=== PATIENT | male | born 1985 | race Caucasian/White ===

== ENCOUNTER 2024-03-29 22:33 | Inpatient (IN) | payer OTHER, SELFPAY ==
[2024-03-29] VITALS (7 sets, daily range): BP systolic 109–150; BP diastolic 62–97; BMI 36.1; BMI 35.9
[2024-03-29 19:50] LABS: % Basophils 0.6 % (0-2); % Eosinophils 0.5 % (0-6); % Immature Granulocytes 0.7 % (0-0.5); % Lymphocytes 9.1 % (20.5-51.1); % Neutrophils 76.1 % (42.2-75.2); Absolute Basophils 0.1 10^3/uL (0-0.2); Absolute Eosinophils 0.1 10^3/uL (0-0.7); Absolute Immature Granulocytes 0.1 10^3/uL (0-0.05); Absolute Lymphocytes 1.6 10^3/uL (1.2-3.4); Absolute Monocytes 2.3 10^3/uL (0.1-0.6); Absolute Neutrophils 13.3 10^3/uL (1.4-6.5); Hematocrit 42.8 % (39.0-52.0); Hemoglobin 15.4 g/dL (13.0-18.0); Mean Corpuscular Hgb 30.7 pg (27.0-31.0); Mean Corpuscular Volume 85.3 fL (80.0-94.0); Mean Platelet Volume 10.2 fL (7.4-10.4); Nucleated Red Blood Cells % 0 % (-); Platelet Count 188 10^3/uL (130-400); Red Blood Cell Count 5.02 10^6/uL (4.70-6.10); Red Cell Dist. Width 12.2 % (11.5-14.5); White Blood Cell Count 17.4 10^3/uL (4.8-10.8)
--- NOTE | 2024-03-29 19:59 | ED.GENMED ---
History of Present Illness
General
Chief Complaint: Abdominal Pain
Source: patient and spouse
Exam Limitations: none
Time Seen by Provider: 03/29/24 19:30
Nursing documentation reviewed up to this point in time: agreed with
Travel History
Have you had any contact with someone who has COVID-19?: No
Do you have any symptoms of coronavirus? Fever > 100 degrees, chills, cough, shortness of breath, sore throat, loss of taste or smell, muscle aches, or headache?: No
History of Present Illness
History of Present Illness:
Patient is a 39-year-old male who presents to the emergency department complaining of left lower quadrant pain with fever and chills as well as diminished appetite and increased feeling of gassiness with constipation/diarrhea for the past 3 days.
Patient woke with this and then that night developed a fever. Patient denies any nausea or vomiting. Patient denies any hematuria, frequency, urgency, dysuria. Patient denies any flank or back pain. Patient denies any previous history of similar
episodes. Patient's temperature has been 102.
Past History
Past History
ED Past Medical History: GERD, HTN and Other (sarcoidosis)
ED Past Surgical History: Other (EGD)
Social History
Tobacco: Smoker
Alcohol: Daily
Personal: Partner
Living: with family
Employment: Employed
Family History
Family History: Other
Review of Systems
Review of Systems
All Other Systems: ROS reviewed and negative except as documented in HPI and ROS
Constitutional: Reports fever, fatigue and chills
EENT: Reports no symptoms
Respiratory: Reports no symptoms
Cardiac: Reports no symptoms
ABD/GI: Reports abdominal pain, diarrhea, constipated and anorexia; Denies nausea, vomiting, bloody stools or black stools
: Reports no symptoms
Musculoskeletal: Reports no symptoms
Skin: Reports no symptoms
Neurological: Reports no symptoms
Hematologic/Lymphatic: Reports no symptoms
Psychiatric: Reports no symptoms
Phy Exam
Physical Exam
Physical Exam:
Physical Exam
General: No apparent moderate distress, alert and appropriate, well nourished, well hydrated
HENT: Normocephalic, supple with no lymphadenopathy, no thyromegaly
Eyes: Clear sclera, conjuctiva without injection
Heart: Regular rhythm and rate. No S3, S4. No murmur. No NVD
Lungs: No respiratory distress, no stridor, lung sounds clear and equal bilaterally
Abdomen: Soft, moderate left lower quadrant tenderness with guarding but no rebound, no organomegaly, no CVA tenderness, BS diminished
Neuro: Alert and oriented x 3, CN II - XII intact, no motor focality, no cerebellar dysfunction
Skin: no rash
Psychiatric: well kept. interactive and cooperative
Extremities: No edema, cyanosis, tenderness, Good and equal peripheral pulses.
Course
Orders/Labs/Results
Orders:
Orders
03/29/24 19:41
Complete Blood Count/With Diff Urgent
Comprehensive Metabolic Panel Urgent
Lipase Urgent
Serum Osmolality Urgent
Comment: ADD ON
03/29/24 19:57
Urinalysis Reflex To Culture Urgent
0.9% Sodium Chloride 1000 ml [Nss] 1,000 ml IV BOLUS
Acetaminophen [Tylenol] 1,000 mg PO NOW STA
HYDROmorphone [Dilaudid] 0.5 mg IV NOW STA
Ondansetron Injectable [Zofran] 4 mg IV NOW STA
03/29/24 19:58
CT Abd/Pel (IV only)-DH only Urgent
Comment:
Reason For Exam: Left lower quadrant abdominal pain/tenderness
03/29/24 20:01
Acetaminophen [Tylenol] 1,000 mg .ROUTE .STK-MED ONE
03/29/24 21:43
Add On- LAB Urgent
Tests Added?: serum osmality
03/29/24 21:44
Osmolality, Random Urine Urgent
Urine Sodium Urgent
03/29/24 22:08
LevoFLOXacin 500 MG/100 ML [Levaquin] 500 mg in 100 ml IV NOW
MetroNIDAZOLE 500 MG/100 ML [Flagyl 500 mg] 100 ml IV ONCE
03/29/24 23:00
0.9% Sodium Chloride 500 ml [Nss] 500 ml IV 200 mls/hr
Abnormal Lab Results
03/29/24
19:41
WBC 17.4 H 10^3/uL
(4.8-10.8)
Abs Immat Gran (auto) 0.1 H 10^3/uL
(0-0.05)
Absolute Neuts (auto) 13.3 H 10^3/uL
(1.4-6.5)
Absolute Monos (auto) 2.3 H 10^3/uL
(0.1-0.6)
Immature Gran % 0.7 H %
(0-0.5)
Neutrophils % 76.1 H %
(42.2-75.2)
Lymphocytes % 9.1 L %
(20.5-51.1)
Monocytes % 13.0 H %
(1.7-9.3)
Sodium 129 L mmol/L
(135-145)
Chloride 93 L mmol/L
(98-107)
Creatinine 1.4 H mg/dL
(0.7-1.3)
Glucose 121 H mg/dl
(70-99)
Serum Osmolality 267 L mOsm/kg
(275-300)
Total Bilirubin 1.5 H mg/dl
(0.2-1.3)
03/29/24 19:41
03/29/24 19:41
Vital Signs
Initial and Last Documented VS:
Initial Vital Signs
Temp Pulse BP Pulse Ox
99.2 F 132 150/97 97
03/29/24 19:05 03/29/24 19:05 03/29/24 19:05 03/29/24 19:05
Last Documented Vital Signs
Temp Pulse Resp BP Pulse Ox
99.2 F 119 18 119/70 96
03/29/24 19:05 03/29/24 19:43 03/29/24 19:43 03/29/24 21:00 03/29/24 21:51
*Radiology
Radiology exam reviewed: radiology read reviewed (Acute sigmoid diverticulitis with microperforation)
*Pulse Oximetry
Patient hypoxic: no
*EKG
Interpreted by ED Provider?: NA
*Car Storer Interpretation
Rate: Car Storer- N/A
*Critical Care Note
Total Time (30-74mins, 75-104mins- exclusive of procedures): Not Applicable
ED Attending Note
-
Portions of this chart may have been created with voice recognition software.� Occasional wrong word or��sound alike� substitutions may have occurred due to the inherent limitations of voice recognition software.
Discharge Plan
Departure
Patient Disposition: Admit
Date of Disposition: 03/29/24
Time of Disposition: 22:10
Admit to: Med/Surg
Admit to doctor: Hospitalist
Presentation/result/management discussed w/ accepting MD/DO: Hospitalist
Patient with high blood pressure during this ER visit?: Yes
Condition: Serious
Covid-19: Not Applicable
Discharge Problem:
Acute diverticulitis, MICROPERFORATION of sigmoid colon, Hyponatremia
Prescriptions:
No Action
labetalol 100 mg tablet
100 mg PO BID Qty: 30 0RF
multivitamin Tablet
1 tab PO DAILY
calcium carbonate [Tums] 200 mg calcium (500 mg) Tablet,Chewable
500 mg PO DAILYPRN PRN (Reason: heartburn)
Referrals:
Nahed Park PA-C [Family Provider] -
Interventions
Interventions:
*Risk Screen - Suicide Last Done: 03/29/24 19:05
*General Assessment Last Done: 03/29/24 19:05
*Neglect/Abuse Screening Last Done: 03/29/24 19:05
ED- Fall Risk Assessment Last Done: 03/29/24 19:47
*ED COVID-19 Vaccine History Last Done: 03/29/24 19:05
SU-Sihsos-Rnviagvhjw Assessment Last Done: 03/29/24 19:47
Discharge Date and Time
Print Language: [place]
[2024-03-29 20:03] LABS: ALT (SGPT) 40 U/L (0-50); AST (SGOT) 32 U/L (17-59); Albumin 4.1 g/dl (3.5-5.0); Alkaline Phosphatase 88 U/L (38-126); Blood Urea Nitrogen 16 mg/dl (9-20); Calcium 8.7 mg/dl (8.4-10.2); Carbon Dioxide 24 mmol/L (22-30); Chloride 93 mmol/L (98-107); Estimated Creatinine Clearance 90 ml/min; Glucose 121 mg/dl (70-99); Lipase 53 U/L (23-300); Potassium 3.9 mmol/L (3.5-5.1); Sodium 129 mmol/L (135-145); Total Bilirubin 1.5 mg/dl (0.2-1.3); Total Protein 7.8 g/dl (6.3-8.2); eGFR > 60.00
[2024-03-29] MEDS: TYLENOL 1000 MG PO (20:04)
[2024-03-29] MEDS: DILAUDID 0.5 MG IV (20:04)
[2024-03-29] MEDS: ZOFRAN 4 MG IV (20:04)
[2024-03-29] MEDS: NSS 1000 IV ×2 (20:05→23:56)
[2024-03-29 22:09] LABS: Osmolality Serum 267 mOsm/kg (275-300)
[2024-03-29] MEDS: FLAGYL 500 MG 100 IV (22:19)
[2024-03-29] MEDS: LEVAQUIN 100 IV (22:19)
--- NOTE | 2024-03-29 22:25 | HPS.HSE ---
Family Physician
-
Family Physician: Nahed Park
Chief Complaint
-
abdominal pain an fever
History of Present Illness
39M HX HTN seen at ER for evalaution of abdominal pain and fever
Abdominal pain and fever:
Acute onset since Saturday
Progressive LLQ pain
Asspociated with chills and fever
Associated with diminished appetite and increased feeling of gassiness
POS constipation/diarrhea for the past 3 days.
No N & V
Denies any hematuria, frequency, urgency, dysuria
At ER:
Tachycardic and T 99s
WCC 17. 6
Medical History
Past Medical History
Past Medical History: Reports GERD, HTN and Other (sarcoidosis)
Past Surgical History: Reports None and Other (EGD )
Social History
Tobacco: Smoker
Alcohol: Daily (3-4 glasses [place] daily )
Drug: None
Living: With Family
Family History
Family History: Not pertinent
Allergies / Home Medications
Allergies reflects when Allergies were last updated in [employer].
Home Medications with original date entered in [employer]
Allergy/Medication List:
Allergies
Allergy/AdvReac Type Severity Reaction Status Date / Time
No Known Allergies Allergy Verified 03/29/24 19:05
Home Medications
calcium carbonate (Tums) 500 mg PO DAILYPRN PRN heartburn 06/25/22
multivitamin 1 tab PO DAILY Supplement 06/25/22
losartan 50 mg tablet 50 mg PO DAILY 03/29/24
Review of Systems
-
Constitutional: Reports No Symptoms
EENT: Reports No Symptoms
Respiratory: Reports No Symptoms
Cardiac: Reports No Symptoms
Abdomen/GI: Reports See HPI, Abdominal Pain, Diarrhea, Constipated and Anorexia
: Reports No Symptoms
Musculoskeletal: Reports No Symptoms
Skin: Reports No Symptoms
Neurological: Reports No Symptoms
Endocrine: Reports No Symptoms
Hematologic/Lymphatic: Reports No Symptoms
Psych: Reports No Symptoms
Physical Exam
Vital Signs
Vital Signs
Temp Pulse Resp BP Pulse Ox
99.2 F 119 18 119/70 96
03/29/24 19:05 03/29/24 19:43 03/29/24 19:43 03/29/24 21:00 03/29/24 21:51
Physical Exam
General: Appears in Distress (moderate ) and Pain (LLQ pain )
HEENT: NormoCephalic and Anicteric
Respiratory: Clear; No Wheezes, Rales or Rhonchi
Cardiac: S1/S2, Regular Rhythm and Tachycardia; No Murmur
Breast: Deferred by me
GI: Tender (moderate left lower quadrant tenderness with guarding but no rebound)
Rectal: Deferred by Provider
Genito-urinary: Deferred by me
Musculoskeletal: No Edema
Skin: Warm and Dry
Neuro: AO x 3
Psych: Calm
Laboratory Results
-
03/29/24 19:41
03/29/24 19:41
Laboratory Results
Total Bilirubin 1.5 mg/dl (0.2-1.3) H 03/29/24 19:41
AST 32 U/L (17-59) 03/29/24 19:41
ALT 40 U/L (0-50) 03/29/24 19:41
Alkaline Phosphatase 88 U/L (38-126) 03/29/24 19:41
Lipase 53 U/L (23-300) 03/29/24 19:41
Data Reviewed
-
CT Scan: Report Reviewed by me
Lab Data: Labs Reviewed by me
Impression/Plan
-
Reviewed VS: T 99.2 HR 120-130
Data
WCC 17. 6
Na 129 Cl 93
Cr 1.4 -bl 1.0
CT AP
Acute sigmoid diverticulitis with microperforation
No fluid collection
ASSESSMENT & PLAN
Acute sigmoid diverticulitis with microperforation but no fluid collection
Associated sepsis ( T 102, HR > 90, WCC > 10)
- BCx
- NPO and IVF
- Empiric IV LVQ and Flagyl
- EKGs for QTc monitor
- PRN Analgesia
- CRS consulted
Essential HTN
- Held Losartan
- add IV Hydralazine PRN
Daily ETOH use: 3-4 glasses [place] daily
At risk for acute ETOH WDS
- MSAS protocol
DVT Px: SCD
Code: Full
IP TLM
[2024-03-30] VITALS (7 sets, daily range): BP systolic 94–141; BP diastolic 57–80; BMI 35.9
[2024-03-30 01:54] LABS: Urine Albumin Trace (Neg - Trace); Urine Bilirubin Negative (Negative); Urine Character Clear (Clear); Urine Glucose Negative (Negative); Urine Ketone 2+ (Negative); Urine Leukocyte Negative (Negative); Urine Nitrite Negative (Negative); Urine Occult Blood Trace (Negative); Urine Urobilinogen Negative (Neg - 1+)
[2024-03-30 01:56] LABS: Urine Color Amber
[2024-03-30 02:11] LABS: Urine Sodium 5 mmol/L (30-90)
[2024-03-30 02:13] LABS: Amphetamines Negative (Negative); Barbiturates Negative (Negative); Benzodiazepines Negative (Negative); Buprenorphine Negative (Negative); Cocaine Negative (Negative); Methadone Negative (Negative); Methamphetamines Negative (Negative)
[2024-03-30 02:14] LABS: Marijuana Positive (Negative); Opiates Positive (Negative); Osmolality Urine 383 mOsm/kg (300-900); Phencyclidine Negative (Negative); Tricyclic Antidepressants Negative (Negative)
[2024-03-30 02:21] LABS: Urine Amorphous Seen; Urine Bacteria Few (Negative); Urine White Cell 0-2 /HPF (0-5)
[2024-03-30 02:28] LABS: Fentanyl, Urine Negative (Negative)
[2024-03-30] MEDS: OFIRMEV 100 IV (04:17)
[2024-03-30] MEDS: FLAGYL 500 MG 100 IV ×2 (05:35→14:51)
[2024-03-30 06:52] LABS: Hematocrit 39.8 % (39.0-52.0); Mean Corp Hgb Conc. 35.2 g/dL (33.0-37.0); Mean Corpuscular Hgb 30.5 pg (27.0-31.0); Mean Corpuscular Volume 86.7 fL (80.0-94.0); Mean Platelet Volume 10.6 fL (7.4-10.4); Platelet Count 185 10^3/uL (130-400); Red Blood Cell Count 4.59 10^6/uL (4.70-6.10); Red Cell Dist. Width 12.3 % (11.5-14.5); White Blood Cell Count 13.9 10^3/uL (4.8-10.8)
[2024-03-30 07:02] LABS: INR 1.27; PT 15.7 Sec (11.4-14.6)
[2024-03-30 07:03] LABS: APTT 36.2 Sec (23.4-35.0)
[2024-03-30 07:22] LABS: Blood Urea Nitrogen 15 mg/dl (9-20); Calcium 8.1 mg/dl (8.4-10.2); Carbon Dioxide 20 mmol/L (22-30); Chloride 99 mmol/L (98-107); Estimated Creatinine Clearance > 125 ml/min; GGTP 167 U/L (15-73); Glucose 97 mg/dl (70-99); Magnesium 2.4 mg/dl (1.6-2.3); Phosphorus 3.4 mg/dl (2.5-4.5); Potassium 3.9 mmol/L (3.5-5.1); Sodium 132 mmol/L (135-145); eGFR > 60.00
[2024-03-30 07:29] LABS: B-Hydroxybutyrate 1.26 mmol/L (0.02-0.27)
[2024-03-30 07:37] LABS: Alcohol None Detected
[2024-03-30] MEDS: NSS 1000 IV ×2 (08:46→17:46)
[2024-03-30] MEDS: THIAMINE INJECTION 200 MG IV ×2 (08:47→20:02)
[2024-03-30] MEDS: FOLVITE PO (08:47)
--- NOTE | 2024-03-30 10:19 | W.PN.HOSP.TC ---
Addendum entered and electronically signed by Linda Schneider MD 03/30/24 17:10:
Addendumm
reviewed VS, pt seems to have persistent tachycardia, temp at 99. WIll change IV Abx to IV Zosyn. Blood cultures are pending.
CBC in AM
End
Original Note:
Today's Communication/Plan
-
.
Assessment / Plan
Assessment / Plan
Physical Exam
General: Appears in Distress (moderate ) and Pain (LLQ pain )
HEENT: NormoCephalic and Anicteric
Respiratory: Clear; No Wheezes, Rales or Rhonchi
Cardiac: S1/S2, Regular Rhythm and Tachycardia; No Murmur
GI: soft, no significant tenderness in LLQ
Rectal: no bleeding
Genito-urinary: Deferred by me
Musculoskeletal: No Edema
Skin: Warm and Dry
Neuro: AO x 3
Psych: Calm
#Acute sigmoid diverticulitis with microperforation but no fluid collection
Associated sepsis/septic shock ( T 102, HR > 90, WCC > 10)
He is feeling less pain and discomfort. No nausea.
Await blood cultures.
CAT scan reading with possible microperforation
Continue with IV fluid. WBC coming down.
IV antibiotics. He did not need pain medications since admission
Appreciate surgery help
#Hyponatremia, improving.
No confusion.
# Acute kidney injury, creatinine improved.
#Essential HTN
- Held Losartan
- added IV Hydralazine PRN
Daily ETOH use: 3-4 glasses [place] daily
He does not have signs of withdrawal. Monitor.
At risk for acute ETOH WDS
- MSAS protocol
#DVT prophylaxis, subcu Lovenox
#History of tobacco use, nicotine patch
# Obesity BMI 35
Total time spent to see the patient, examine the patient on the floor, review data and lab results, discuss treatment plan with patient, , nursing staff around 55 minutes
Anticipated Discharge: > 48 hours
Subjective/Interval History
-
Date of Service: March 30, 2024
Less abd discomfort
No nausea
Objective Data
-
Labs:
Laboratory Results
03/30/24 03/30/24 03/30/24
06:00 06:07 06:08
WBC 13.9 H
Hgb 14.0
Hct 39.8
Plt Count 185
PT 15.7 H
INR 1.27
APTT 36.2 H
Sodium Cancelled 132 L
Potassium Cancelled 3.9
Chloride Cancelled 99
Carbon Dioxide Cancelled 20 L
BUN Cancelled 15
Creatinine Cancelled 1.0
Glucose Cancelled 97
Calcium Cancelled 8.1 L
Vital Signs:
Vital Signs
Temp Pulse Resp BP Pulse Ox
98.8 F 96 12 110/70 96
03/30/24 06:30 03/30/24 06:30 03/30/24 06:30 03/30/24 06:30 03/30/24 06:30
I&O
03/29/24 03/30/24 03/31/24
06:59 06:59 06:59
Intake Total 0 / 0
Balance 0 / 0
[2024-03-30] MEDS: NICODERM TRANSDERMAL 14 MG TRANSDERM (10:39)
[2024-03-30] MEDS: ATIVAN 1 MG PO (11:16)
--- NOTE | 2024-03-30 12:06 | CM ---
Received consult for etoh/substance resources. Met with patient and his at bedside to obtain information for assessment. Patient stated that he lives with his in a one story home with 3 steps to enter. He described himself as independent
with all ADLs, personal care, dressing and bathing. He ambulates without device. 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 He drives and can get to his appointments and do all of his own shopping.
Patient denied any DME in his home.
He has never had VN services.
He has not had a SNF stay.
Patient has a prescription plan and uses, [facility] in [place] for all of his medications.
His PCP is, Nahed Park.
Patient was offered resources for etoh however he stated that he did not need any materials for cessation and he is not going to be drinking after this. encouraged him to ask if he reconsiders and he stated that he would.
Plan: Case management will continue to follow and assist with discharge planning. Patient would like to return home when stable.
--- NOTE | 2024-03-30 13:11 | CON.CRS ---
Consultation
-
Date/Time Consultation Requested: 03/29/2024, 23:27
Date/Time Consultation Performed: 03/29/2024, 11:05
Requesting Provider: Ravinder Chase
Performing Provider: Anderson Levine MD
Reason for Consultation: diverticulitis
Medical History
-
Chief Complaint: abdominal pain
History of Present Illness:
39-year-old male, with a past medical history of sarcoidosis and tobacco abuse, presents to the emergency department complaining of abdominal pain for the past 3 days. The patient states he has never had pain like this before. Along with the pain
he has had intermittent fevers over the past 3 days with a high of 102.0.. He denies nausea or vomiting. He denies chest pain. He denies shortness of breath. He has been having diarrhea for about a day but has not noticed any blood in his stool.
He does not have a previous history of diverticulitis. He has never had abdominal surgery. His family history is negative for colon or rectal cancer. He has never had a colonoscopy.
On admission his WBC was 17.9 and he was started on IV antibiotics. Today's WBC is 13.9. CT of the abdomen and pelvis shows acute sigmoid diverticulitis with probable microperforation. We have been consulted for further surgical opinion.
Past Medical History
Past Medical History: GERD, HTN and Other (sarcoidosis)
Past Surgical History: None
Social History
Tobacco: Smoker (Half to 1 pack a day for last 20 years)
Alcohol: Daily (4 drinks per day)
Drug: None
Family History
Family History: Reviewed & Not Pertinent
Allergies / Home Medications
Allergy/AdvReac Type Severity Reaction Status Date / Time
No Known Allergies Allergy Verified 03/29/24 19:05
�Medication �Instructions �Recorded �Confirmed �Type
calcium carbonate (Tums) 500 mg PO DAILYPRN PRN heartburn 06/25/22 03/29/24 History
multivitamin 1 tab PO DAILY Supplement 06/25/22 03/29/24 History
losartan 50 mg tablet 50 mg PO DAILY Blood Pressure 03/29/24 03/29/24 History
Review of Systems
-
History Source: Patient
All other systems: Negative unless noted
Constitutional: Fever
Abdomen/GI: Abdominal Pain and Diarrhea
A 10 point review of systems was completed, and was negative except as per HPI.
Physical Exam
Vital Signs
Temp 98.8 F 03/30/24 11:10
Pulse 100 03/30/24 11:10
Resp Rate 14 03/30/24 11:10
Blood pressure 104/57 03/30/24 11:10
SaO2 97 03/30/24 13:01
03/29/24 03/30/24 03/31/24
06:59 06:59 06:59
Actual Weight 113.398 kg
Body Mass Index (BMI) 35.9
Lab Results / Allergies
03/30/24 06:08
03/30/24 06:07
WBC 13.9 10^3/uL (4.8-10.8) H 03/30/24 06:08
Hgb 14.0 g/dL (13.0-18.0) 03/30/24 06:08
Hct 39.8 % (39.0-52.0) 03/30/24 06:08
Plt Count 185 10^3/uL (130-400) 03/30/24 06:08
Abs Immat Gran (auto) 0.1 10^3/uL (0-0.05) H 03/29/24 19:41
Neutrophils % 76.1 % (42.2-75.2) H 03/29/24 19:41
Allergy/AdvReac Type Severity Reaction Status Date / Time
No Known Allergies Allergy Verified 03/29/24 19:05
Physical Exam
General: Well Developed, Well Nourished and No Apparent Distress
GI: Soft, Non Distended and Tender (Mild left lower quadrant tenderness)
Skin: Warm and Dry
Neuro: AO x 3
Psych: Calm
Data Reviewed
-
CT Scan: Image Personally Visualized and interpreted, Report Reviewed by me and Discussed with Patient
Labs: Labs Reviewed by me, Discussed with Physician and Discussed with Patient
Old Records: Reviewed
Assessment / Plan
-
Assessment: 39-year-old male with a history of sarcoidosis and tobacco abuse presents to the ER for 3 days of abdominal pain and fevers. Started on IV antibiotics and white count is down to 13.[address] abdomen pelvis shows acute diverticulitis
of the sigmoid.
WBC 13.9. Afebrile, vital signs normal.
Plan:
There is no indication for surgery at this time. If he were to worsen he would require a colectomy with colostomy creation. For now continue IV antibiotics. Okay to advance on a clear liquid diet. Trend labs daily. Will follow.
[2024-03-30] MEDS: ZOSYN 50 IV (17:46)
[2024-03-31] VITALS (8 sets, daily range): BP systolic 118–151; BP diastolic 70–94
[2024-03-31] MEDS: NSS 1000 IV ×2 (00:07→09:05)
[2024-03-31] MEDS: ZOSYN 50 IV ×5 (00:08→23:26)
[2024-03-31 07:30] LABS: Hematocrit 41.5 % (39.0-52.0); Hemoglobin 13.8 g/dL (13.0-18.0); Mean Corp Hgb Conc. 33.3 g/dL (33.0-37.0); Mean Corpuscular Hgb 30.1 pg (27.0-31.0); Mean Corpuscular Volume 90.6 fL (80.0-94.0); Mean Platelet Volume 10.2 fL (7.4-10.4); Platelet Count 192 10^3/uL (130-400); Red Blood Cell Count 4.58 10^6/uL (4.70-6.10); Red Cell Dist. Width 12.1 % (11.5-14.5); White Blood Cell Count 9.1 10^3/uL (4.8-10.8)
[2024-03-31 07:44] LABS: Blood Urea Nitrogen 13 mg/dl (9-20); Calcium 8.6 mg/dl (8.4-10.2); Carbon Dioxide 22 mmol/L (22-30); Chloride 103 mmol/L (98-107); Estimated Creatinine Clearance > 125 ml/min; Glucose 92 mg/dl (70-99); Potassium 4.2 mmol/L (3.5-5.1); Sodium 137 mmol/L (135-145); eGFR > 60.00
[2024-03-31] MEDS: VISBIOME 1 CAP PO (09:04)
[2024-03-31] MEDS: THIAMINE INJECTION 200 MG IV ×2 (09:04→20:13)
[2024-03-31] MEDS: NICODERM TRANSDERMAL 14 MG TRANSDERM (09:05)
[2024-03-31] MEDS: FOLVITE 1 MG PO (09:05)
--- NOTE | 2024-03-31 09:23 | W.PN.HOSP.TC ---
Today's Communication/Plan
-
Oral Ativan for anxiety
Can advance diet as tolerated slowly
No need for more IVF
Assessment / Plan
Assessment / Plan
Physical Exam
General: Appears in Distress (moderate ) and Pain (LLQ pain )
HEENT: Normocephalic and Anicteric
Respiratory: Clear; No Wheezes, Rales or Rhonchi
Cardiac: S1/S2, Regular Rhythm and Tachycardia; No Murmur
GI: soft, no significant tenderness in LLQ
Rectal: no bleeding
Genito-urinary: Deferred by me
Musculoskeletal: No Edema
Skin: Warm and Dry
Neuro: AO x 3
Psych: Calm, flat affaect
#Acute sigmoid diverticulitis with microperforation but no fluid collection
Associated sepsis/septic shock ( T 102, HR > 90, WCC > 10)
He denies abdominal pain or nausea. Antibiotic was changed to Zosyn after persistent tachycardia and temperature of 99.9. This morning, he is feeling much better. He is afebrile with temperature 98.7
Blood culture no growth. Can stop IV fluid
CAT scan reading with possible microperforation
Will advance diet slowly. Leukocytosis resolved
Appreciate surgery help
#Hyponatremia, resolved
No confusion.
# Acute kidney injury, creatinine improved.
#Essential HTN
Resume losartan
#Daily ETOH use: 3-4 glasses [place] daily
He does not have signs of withdrawal. Monitor.
At risk for acute ETOH WDS
- MSAS protocol
# Anxiety, will give 1 dose of Ativan
#DVT prophylaxis, subcu Lovenox
#History of tobacco use, nicotine patch
# Obesity BMI 35
Total time spent to see the patient, examine the patient on the floor, review data and lab results, discuss treatment plan with patient, , nursing staff around 55 minutes
Anticipated Discharge: 24 - 48 hours
Subjective/Interval History
-
Date of Service: March 31, 2024
Objective Data
-
Labs:
Laboratory Results
03/31/24
06:56
WBC 9.1
Hgb 13.8
Hct 41.5
Plt Count 192
Sodium 137
Potassium 4.2
Chloride 103
Carbon Dioxide 22
BUN 13
Creatinine 1.0
Glucose 92
Calcium 8.6
Vital Signs:
Vital Signs
Temp Pulse Resp BP Pulse Ox
98.7 F 92 16 139/77 98
03/31/24 08:00 03/31/24 08:00 03/31/24 08:00 03/31/24 08:00 03/31/24 08:00
I&O
03/30/24 03/31/24 04/01/24
06:59 06:59 06:59
Intake Total 0 / 0 4240 / 4240
Balance 0 / 0 4240 / 4240
[2024-03-31] MEDS: ATIVAN 0.5 MG PO (09:45)
--- NOTE | 2024-03-31 11:20 | W.PN.CRS1 ---
Today's Communication / Plan
-
no plans for surgery
advance diet
Assessment/Plan
-
Assessment: 39-year-old male with a history of sarcoidosis and tobacco abuse presents to the ER for 3 days of abdominal pain and fevers. Started on IV antibiotics and white count is down to 13.[address] abdomen pelvis shows acute diverticulitis
of the sigmoid.
WBC 11.1 from 13.9. Afebrile, vital signs normal.
Plan:
1. There is no indication for surgery at this time. If he were to worsen he would require a colectomy with colostomy creation.
2. Patient advanced to fulls this morning, okay to advance to low residue for dinner if doing well.
3. Continue IV antibiotics, convert to oral as an outpatient.
4. Will need follow up with Dr. Levine as an outpatient.
Subjective Data
Subjective Data
Date of Service: March 31, 2024
Patient states he feels better today. He has less pain. He is not bloated. He denies nausea or vomiting.
Objective Data
-
Vital Signs
Temp Pulse Resp BP Pulse Ox
98.7 F 92 16 139/77 98
03/31/24 08:00 03/31/24 08:00 03/31/24 08:00 03/31/24 08:00 03/31/24 10:46
Intake & Output
03/30/24 03/31/24 04/01/24
06:59 06:59 06:59
Intake Total 0 / 0 4240 / 4240
Balance 0 / 0 4240 / 4240
Intake:
Oral fluids 0 / 0 940 / 940
IV fluids (Total) 3000 / 3000
IV piggybacks 300 / 300
Other:
Number of approximated MODERATE 3 2
amounts of urine
Number of approximated LARGE 1
amounts of urine
Lab Results
03/31/24 06:56
03/31/24 06:56
Physical Exam
-
General: No Acute Distress and AOx3
Abdomen: Soft, Non Distended and Tender (LLQ- mild)
Skin: Warm and Dry
--- NOTE | 2024-03-31 18:39 | PTCARENOTE ---
Patient's diet advanced to low residue diet after tolerating full liquids for lunch per GI order; patient states stomach feeling 'bubbly' after eating low residue dinner but states he tolerated meal and denies pain at this time.
[2024-03-31] MEDS: DILAUDID 0.5 MG IV ×2 (20:54→21:51)
[2024-03-31] MEDS: DILAUDID 1 MG IV (23:55)
[2024-03-31] MEDS: MYLICON 80 MG PO (23:59)
[2024-04-01] VITALS (15 sets, daily range): BP systolic 111–155; BP diastolic 75–103
[2024-04-01] MEDS: NSS 1000 IV ×3 (01:05→23:29)
--- NOTE | 2024-04-01 02:17 | PTCARENOTE ---
Pt c/o lower abdominal pain 10/10 after using the bathroom. Pt admitted with LLQ pain and diverticulitis. Pt stated his pain now is continuous and it is different compare to pain he had before. Pt denies nausea or vomiting. Now bowel sounds
hypoactive LUQ, RUQ and RLQ, and absent on LLQ (on initial assessment was hyperactive in all four quadrants) PRN Dilaudid given and pt's pain improved to 8/10. FILM LABORATORY TECHNICIAN made aware. Another dose of Dilaudid was given without any improvement. STAT CT abd
with contrast ordered.
01:35 Radiologist Mari called with critical result, and result was reported to FILM LABORATORY TECHNICIAN via the phone. Pt made NPO and IV fluids started.
[2024-04-01] MEDS: DILAUDID 1 MG IV ×4 (03:18→18:35)
--- NOTE | 2024-04-01 03:24 | PTCARENOTE ---
0300 Pt VS T102.5 RR 127 BP 151/102 O2 89% on RA. Pt phased on 2L, STAT labs ordered per ASSISTANT CASINO SHIFT MANAGER
[2024-04-01 03:37] LABS: Hematocrit 43.2 % (39.0-52.0); Hemoglobin 14.8 g/dL (13.0-18.0); Mean Corp Hgb Conc. 34.3 g/dL (33.0-37.0); Mean Corpuscular Hgb 30.4 pg (27.0-31.0); Mean Corpuscular Volume 88.7 fL (80.0-94.0); Mean Platelet Volume 10.3 fL (7.4-10.4); Platelet Count 272 10^3/uL (130-400); Red Blood Cell Count 4.87 10^6/uL (4.70-6.10); Red Cell Dist. Width 12.2 % (11.5-14.5); White Blood Cell Count 12.7 10^3/uL (4.8-10.8)
--- NOTE | 2024-04-01 03:39 | W.PN.UPDATE ---
Update Note
Progress Note Update
Patient continuos to c/o abdomen pain after total of 1mg IV Dilaudid. stable Vital signs. Patient seen and evaluated. c/o 'gassy, sharp' across the mid abdomen, mildly firm, distended, tender to palpate, Hypoactive BS 4 quadrant, neg flatus. IV
Dilaudid 1mg given, Simethicone 80mg once, Last BM at [address] Martínez (GI) made aware. ordered CT scan, NSS @100/hr,
Result notified to Dr. Martínez. Patient made NPO, continue NSS, on Zosyn 3.375 IV q6 hrs.
Result shows:
New moderate amount of free air through out abdomen
worsened perforated diverticulitis
inflamed diverticulum suggestive of developing abscess.
At 0300 patient spike temperature 102.5 HR 127 BP 151/102 O2 on RA 89. IV Tylenol ordered, IV Dilaudid 1mg given, stat labs, ABG ordered.
labs noted, WBC 12.7, procal 0.52 Will start patient on IV antibiotics.
Currently on Zosyn, will add IV Vancomycin. Dr. Martínez made aware again.
Dr. Martínez recommending surgery and that he will make the team aware.
Patient seen again, explained the plan to himself and the family, verbalized understanding.
Patient looks little comfortable at present. Will change pain medications.
98.2, 121, 21 95% 2L 5/10 pain
[2024-04-01 03:41] LABS: B.E. -2.4 mmol/L; HCO3 21.7 mmol/L (21-28); PCO2 35 mmHg (35-48); PO2 66 mmHg (83-108)
[2024-04-01] MEDS: OFIRMEV 100 IV (03:44)
[2024-04-01 04:00] LABS: Blood Urea Nitrogen 13 mg/dl (9-20); Carbon Dioxide 20 mmol/L (22-30); Chloride 103 mmol/L (98-107); Estimated Creatinine Clearance > 125 ml/min; Glucose 134 mg/dl (70-99); Potassium 4.5 mmol/L (3.5-5.1); Sodium 134 mmol/L (135-145); eGFR > 60.00
[2024-04-01 04:22] LABS: Procalcitonin 0.52 ng/ml (0.0-0.25)
[2024-04-01] MEDS: VANCOCIN 540 MG IV (04:46)
[2024-04-01] MEDS: ZOSYN 50 IV ×4 (05:50→23:29)
--- NOTE | 2024-04-01 06:22 | W.PN.UPDATE ---
Update Note
Progress Note Update
I was contacted by the overnight house provider a couple of times last night, most recent at 430 with the results of the CT scan. He spiked a fever last night, had worsening abdominal pain, and is tachycardic. On physical exam he appears acutely
ill his abdomen is tender throughout but mostly in the left lower quadrant with peritoneal signs. The CT scan reveals a new moderate amount of free air throughout the abdomen as well as a 2.4 x 1.8 cm loculated fluid collection near inflamed
sigmoid diverticulum.
I reviewed the current findings with the patient and his and discussed the treatment options. I recommend surgery, which will most likely involve a temporary colostomy. Without surgery, it is unlikely his condition will improve since it has
progressed with antibiotics. I reviewed the operation, i.e. a laparotomy, sigmoid resection with probable end colostomy. I explained there is a small chance of an anastomosis but it will depend upon the operative findings. Risks of surgery
include, but are not limited to, bleeding, infection, adhesions, hernias, injury other structures, anastomotic leak if one is performed, stoma complications, injury other structures, DVT, cardiopulmonary complications, and organ dysfunction. I also
reviewed the typical recovery and functional results. All questions answered and they wish to proceed. Arrangements are in progress for the operating room.
--- NOTE | 2024-04-01 08:00 | PTCARENOTE ---
Pt in OR for bowel perforation. 0800 MSAS cannot be done.
--- NOTE | 2024-04-01 10:00 | W.IMMPOSTOP ---
Surgical Immed Post Op Note
-
Primary Surgeon: Jesus Alberto Martínez MD
Assistants: Carol Crowley PA-C, SALTY Maria
Pre-op Diagnosis: Perforated sigmoid diverticulitis
Post-op Diagnosis: Same
Procedure Performed: Exploratory laparotomy, sigmoid resection and end colostomy (Helen's procedure)
Anesthesia Type: GET
Specimen / Cultures: Peritoneal cultures (aerobic and anaerobic)
Sigmoid colon (suture is distal)
Estimated Blood Loss: 25cc
Complications: None
Operative Findings: Perforated distal sigmoid diverticulitis (Hinchey IV)
NGT tip not confirmed in the stomach
Patient's and mother updated.
[2024-04-01] MEDS: FOLVITE PO (10:10)
[2024-04-01] MEDS: VISBIOME PO (10:10)
[2024-04-01 10:47] LABS: Hematocrit 45.5 % (39.0-52.0); Mean Corpuscular Hgb 29.9 pg (27.0-31.0); Mean Corpuscular Volume 90.6 fL (80.0-94.0); Platelet Count 305 10^3/uL (130-400); Red Blood Cell Count 5.02 10^6/uL (4.70-6.10); Red Cell Dist. Width 12.4 % (11.5-14.5); White Blood Cell Count 17.7 10^3/uL (4.8-10.8)
--- NOTE | 2024-04-01 11:00 | WOUNDNOTE ---
WON RN NOTE: Patient had emergent sigmoid resection with Colostomy for perforation early this morning. Patient still in PACU, dropped off information folder and ordered 2 3/4' Willard 2 piece supplies for bedside. Nurse Ravinder aware of the above and
will follow towards end of week for teaching.
[2024-04-01 11:20] LABS: Blood Urea Nitrogen 12 mg/dl (9-20); Calcium 8.3 mg/dl (8.4-10.2); Carbon Dioxide 19 mmol/L (22-30); Chloride 103 mmol/L (98-107); Estimated Creatinine Clearance > 125 ml/min; Glucose 179 mg/dl (70-99); Potassium 4.9 mmol/L (3.5-5.1); Sodium 133 mmol/L (135-145); eGFR > 60.00
[2024-04-01] MEDS: THIAMINE INJECTION 200 MG IV ×2 (11:36→20:35)
[2024-04-01] MEDS: NICODERM TRANSDERMAL 14 MG TRANSDERM (11:37)
[2024-04-01] MEDS: DILAUDID 0.5 MG IV (11:53)
--- NOTE | 2024-04-01 12:14 | PHA.VAN.IN ---
Assessment
- Assessment
Renal Function: Appears similar to baseline
Renal Function may be Overestimated due to: obesity
Maximum Temperature: 102.5 - 04/01 03:03
Concomitant Antimicrobials: piperacillin/tazobactam
AUC Dosing Plan
- Dosing Variables
Dosing Weight (kg): 113
Dosing CrCl (ml/min): 125
Vd coefficient (L/kg): 0.6
- Empiric Dosing
Initial / Loading Dose: 2000 mg 04/01/24 04:46
Maintenance Regimen: 1000 mg q8h - first dose 1800 today
Estimated AUC (mcg*h/mL): 442
Estimated Peak (mcg*h/mL): 25.5
Estimated Trough (mcg/ml): 12.6
Estimated Half Life (H): 6.4
- Monitoring
No levels ordered at this time: consider levels when pt nears steady state
Pharmacokinetics Vancomycin I
- -
Patient Age: 39
Patient Sex: Male
Vancomycin Day #: 1
Indication: Gi / Intra-Abdominal
Requesting Provider: Ebenezer
Height / Weight:
Height 5 ft 10 in
Actual Weight 113.398 kg
Pertinent Past Medical History: BMI ~36; s/p Hartmanns for perforated sigmoid diverticulitis on 04/01
- Vital Signs / Lab Results
Temp Pulse Resp BP Pulse Ox
97.9 F 114 16 126/80 94
04/01/24 11:45 04/01/24 11:45 04/01/24 11:45 04/01/24 11:45 04/01/24 11:45
Lab Results - Hematology
03/29/24 03/30/24 03/31/24
19:41 06:08 06:56
WBC 17.4 H 13.9 H 9.1
04/01/24 04/01/24
03:21 10:38
WBC 12.7 H 17.7 H
Lab Results - Chemistry
03/29/24 03/30/24 03/30/24
19:41 06:00 06:07
BUN 16 Cancelled 15
Creatinine 1.4 H Cancelled 1.0
Estimated Creat Clear 90 Cancelled > 125
Albumin 4.1
03/31/24 04/01/24 04/01/24
06:56 03:21 10:38
BUN 13 13 12
Creatinine 1.0 1.0 1.0
Estimated Creat Clear > 125 > 125 > 125
Albumin
Lab Results - Urine
03/30/24
01:46
Urine Nitrite Cancelled
Urine Nitrite (Reflex) Negative
Ur Leukocyte Esterase Cancelled
Leukocyte Esterase Rfl Negative
Urine WBC (Reflex) 0-2
Ur Squamous Epith Cells 3-5
Urine Bacteria (Reflex) Few A
Microbiology Results
03/30/24 06:07 Blood Culture - Preliminary
Blood/Venous No Growth in 48 hours- Final report to follow
03/30/24 06:43 Blood Culture - Preliminary
Blood/Venous No Growth in 48 hours- Final report to follow
03/30/24 06:11 MRSA Screen - Final
Nose No Methicillin Resistant Staphylococcus aureus isolated.
--- NOTE | 2024-04-01 12:24 | PTCARENOTE ---
Pt recived from PACU. Mid abd incision with scant sanguineous drainage at bottom of Aquacel. Verified with [facility]. Colostomy site CDI. NGT in L nare connected to continuous suction. Tele monitor reading ST. Pt. c/o of 6/10 abd pain throughout. PRN
IV Dilaudid given prn per order. IVF and IV abx running per order. at bedside. Call poon within reach.
--- NOTE | 2024-04-01 15:10 | CM ---
CM reviewed chart
Pt in OR earlier today sigmoidectomy and new ostomy
Bedside meeting with pt and spouse to discuss VN
In agreement for new ostomy care and support, VN choice
Referral made to [facility] and pending
PCP is [facility] and pt current, last visit 3 months prior
Discharge Disposition- home with new ostomy and VN ([facility] pending)
--- NOTE | 2024-04-01 16:06 | VNURNOTE ---
[facility] referral completed in [facility] after review of chart.
Call to patient's spouse to review plan, no answer this afternoon.
[2024-04-01] MEDS: VANCOCIN 200 IV (17:53)
--- NOTE | 2024-04-01 18:01 | W.PN.HOSP.TC ---
Today's Communication/Plan
-
.
Assessment / Plan
Assessment / Plan
Physical Exam
General: Appears in Distress (moderate ) and Pain (LLQ pain )
HEENT: Normocephalic and Anicteric
Respiratory: Clear; No Wheezes, Rales or Rhonchi
Cardiac: S1/S2, Regular Rhythm and Tachycardia; No Murmur
GI: soft, no significant tenderness in LLQ
Rectal: no bleeding
Genito-urinary: Deferred by me
Musculoskeletal: No Edema
Skin: Warm and Dry
Neuro: AO x 3
Psych: Calm, flat affaect
#Acute Perforated sigmoid diverticulitis s/p Exploratory laparotomy, sigmoid resection and end colostomy (Helen's procedure) by Dr Martínez 04/01
c/w IV Abx
Pain control
NG
IVF
Appreciate surgery help
#Hyponatremia, resolved
No confusion.
# Acute kidney injury, creatinine improved.
#Essential HTN
Holding losartan
#Daily ETOH use: 3-4 glasses [place] daily
He does not have signs of withdrawal. Monitor.
At risk for acute ETOH WDS
- MSAS protocol
# Anxiety, will give 1 dose of Ativan
#DVT prophylaxis, subcu Lovenox
#History of tobacco use, nicotine patch
# Obesity BMI 35
Total time spent to see the patient, examine the patient on the floor, review data and lab results, discuss treatment plan with patient, nursing staff around 55 minutes
Anticipated Discharge: > 48 hours
Subjective/Interval History
-
Date of Service: April 01, 2024
pain in abdomen post op
Objective Data
-
Labs:
Laboratory Results
04/01/24
10:38
WBC 17.7 H
Hgb 15.0
Hct 45.5
Plt Count 305
Sodium 133 L
Potassium 4.9
Chloride 103
Carbon Dioxide 19 L
BUN 12
Creatinine 1.0
Glucose 179 H
Calcium 8.3 L
Vital Signs:
Vital Signs
Temp Pulse Resp BP Pulse Ox
97.4 F 103 16 122/82 94
04/01/24 15:20 04/01/24 15:20 04/01/24 15:20 04/01/24 15:20 04/01/24 15:20
I&O
03/31/24 04/01/24 04/02/24
06:59 06:59 06:59
Intake Total 4240 / 4240 500 / 500 1100 / 1100
Output Total 50 / 50
Balance 4240 / 4240 500 / 500 1050 / 1050
[2024-04-01] MEDS: TORADOL 30 MG IV (18:33)
[2024-04-02] VITALS (7 sets, daily range): BP systolic 114–141; BP diastolic 83–93; PULSE 111; O2SAT 96
[2024-04-02] MEDS: VANCOCIN 200 IV ×2 (02:42→09:04)
[2024-04-02] MEDS: DILAUDID 0.5 MG IV (02:48)
[2024-04-02] MEDS: ANESTHETIC LOZENGE 1 LOZENGE PO ×3 (05:49→17:14)
[2024-04-02] MEDS: ZOSYN 50 IV ×4 (05:49→23:44)
[2024-04-02] MEDS: NSS IV (05:49)
[2024-04-02] MEDS: DILAUDID 1 MG IV ×3 (05:56→14:21)
[2024-04-02] MEDS: NICODERM TRANSDERMAL 14 MG TRANSDERM (09:04)
[2024-04-02 09:13] LABS: Hematocrit 39.2 % (39.0-52.0); Mean Corp Hgb Conc. 33.2 g/dL (33.0-37.0); Mean Corpuscular Volume 90.5 fL (80.0-94.0); Platelet Count 278 10^3/uL (130-400); Red Blood Cell Count 4.33 10^6/uL (4.70-6.10); Red Cell Dist. Width 12.4 % (11.5-14.5); White Blood Cell Count 16.3 10^3/uL (4.8-10.8)
--- NOTE | 2024-04-02 10:04 | W.PN.CRS1 ---
Today's Communication / Plan
-
ngt
wound care teaching
change pain medication
cont abx
Assessment/Plan
-
Assessment: 39-year-old male with a history of sarcoidosis and tobacco abuse presents to the ER for 3 days of abdominal pain and fevers. Started on IV antibiotics and white count is down to 13.[address] abdomen pelvis shows acute diverticulitis
of the sigmoid.
WBC 16.3 from 17.7. Afebrile, vital signs normal.
POD#1 sigmoid resection and end colostomy (Helen's procedure)
1. Continue NGT. Okay for ice chips. IVFs while NPO.
2. Wound RN for stoma teaching.
3. Okay for OOB. Clamp tube for 30 minutes if ambulating.
4. Okay to start lovenox tonight for DVT prophylaxis.
5. OR pathology pending.
6. Continue IV antibiotics.
7. Pain control: Dilaudid IV PRN, Tylenol PRN. Will change Tylenol to standing and add Toradol.
8. Appreciate hospitalist.
9. Continue stokes until tomorrow.
Subjective Data
Procedure
04/01/2024- Exploratory laparotomy, sigmoid resection and end colostomy (Helen's procedure)
Subjective Data
Date of Service: April 02, 2024
Patient states he is in quite a lot of abdominal pain. He has no nausea or vomiting. His mouth is very dry.
Objective Data
-
Vital Signs
Temp Pulse Resp BP Pulse Ox
97.8 F 107 12 127/84 99
04/02/24 07:30 04/02/24 07:30 04/02/24 07:30 04/02/24 07:30 04/02/24 07:30
Intake & Output
04/01/24 04/02/24 04/03/24
06:59 06:59 06:59
Intake Total 500 / 500 3860 / 3860
Output Total 1030 / 1030
Balance 500 / 500 2830 / 2830
Intake:
Oral fluids 500 / 500
IV fluids (Total) 2700 / 2700
NSS 300 / 300
IV piggybacks 1100 / 1100
Amount instilled into GI Tube ( 60 60
Total)
[place] Sump 60 / 60
Output:
Liquid stool amount 20 / 20
Colostomy 10 / 10
Rectum 10 / 10
Gastrointestinal tube output ( 60 60
Total)
[place] Sump 60 / 60
Urine, [place] 950 / 950
Other:
Number of approximated MODERATE 1
amounts of urine
Number of unmeasured liquid
stools
Rectum 2
Lab Results
04/02/24 08:37
Physical Exam
-
General: No Acute Distress and AOx3
Abdomen: Soft, Tender (throughout) and Other (colostomy warm and pink, no output)
Skin: Warm and Dry
--- NOTE | 2024-04-02 10:14 | W.PN.HOSP.TC ---
Today's Communication/Plan
-
Use Toradol and Ativan to cut back on Dilaudid
c/w IVF
NG
Assessment / Plan
Assessment / Plan
Physical Exam
General: No respiratory distress.
HEENT: Normocephalic and Anicteric. NG
Respiratory: Clear; No Wheezes, Rales or Rhonchi
Cardiac: S1/S2, Regular Rhythm and Tachycardia; No Murmur
GI: sutures clean, + colostomy bag
Rectal: no bleeding
Genito-urinary: No hematuria.
Musculoskeletal: No Edema
Skin: Warm and Dry
Neuro: AO x 3, followed commands.
Psych: Calm.
#Acute Perforated sigmoid diverticulitis s/p Exploratory laparotomy, sigmoid resection and end colostomy (Helen's procedure) by Dr Martínez 04/01
HE still requires IV Dilaudid, no nausea, no vomiting
c/w IV Abx
Pain control , will change to IV Dilaudid 1 mg Q2HPRN, add PRN Toradol and iV Ativan to help cut back on opioid use.
NG
IVF
Appreciate surgery help
#Hyponatremia, resolved
No confusion.
# Acute kidney injury, creatinine improved.
#Essential HTN
Holding losartan
#Daily ETOH use: 3-4 glasses [place] daily
He does not have signs of withdrawal. Passed time for showing withdrawal, ok to be off off MSAS protocol.
# Anxiety, will give 1 dose of Ativan
#DVT prophylaxis, on Thrombo guards.
#History of tobacco use, nicotine patch
# Obesity BMI 35
Total time spent to see the patient, examine the patient on the floor, review data and lab results, discuss treatment plan with patient, nursing staff around 57 minutes
Anticipated Discharge: > 48 hours
Subjective/Interval History
-
Date of Service: April 02, 2024
Less pain after toradol
Objective Data
-
Labs:
Laboratory Results
04/02/24
08:37
WBC 16.3 H
Hgb 13.0
Hct 39.2
Plt Count 278
Sodium Pending
Potassium Pending
Chloride Pending
Carbon Dioxide Pending
BUN Pending
Creatinine Pending
Glucose Pending
Calcium Pending
Vital Signs:
Vital Signs
Temp Pulse Resp BP Pulse Ox
97.8 F 107 12 127/84 99
04/02/24 07:30 04/02/24 07:30 04/02/24 07:30 04/02/24 07:30 04/02/24 07:30
I&O
04/01/24 04/02/24 04/03/24
06:59 06:59 06:59
Intake Total 500 / 500 3860 / 3860
Output Total 1030 / 1030
Balance 500 / 500 2830 / 2830
[2024-04-02 10:42] LABS: Blood Urea Nitrogen 15 mg/dl (9-20); Calcium 8.1 mg/dl (8.4-10.2); Carbon Dioxide 22 mmol/L (22-30); Chloride 104 mmol/L (98-107); Estimated Creatinine Clearance 115 ml/min; Glucose 118 mg/dl (70-99); Potassium 4.4 mmol/L (3.5-5.1); Sodium 136 mmol/L (135-145); eGFR > 60.00
--- NOTE | 2024-04-02 11:06 | PHA.VAN.FU ---
Vancomycin Assessment / Plan
- Assessment
Renal Function: Stable
WBC's are: Trending Down
In the past 24 hrs, patient has been: Afebrile
Concomitant Antimicrobials: piperacillin/tazobactam
- Dosing Plan
Adjust Regimen to: Vanc 1500mg Q12H starting at 1800
New Regimen Predicts: AUC (476), Peak (31.7), Trough (11.1)
- Monitoring Plan
No level(s) ordered at this time: consider levels in next few days
- Follow Up
Pharmacy will continue to follow.
Vancomycin Follow UP
- -
Patient Age: 39
Patient Sex: Male
Vancomycin Day #: 2
Indication: Gi / Intra-Abdominal
Requesting Provider: Orquidea Sol
Pertinent Antimicrobial Allergies:
NKDA
Height / Weight:
Height 5 ft 10 in
Actual Weight 113.398 kg
Pertinent Past Medical History: BMI ~36; s/p Hartmanns for perforated sigmoid diverticulitis on 04/01
- Vital Signs / Lab Results
Temp Pulse Resp BP Pulse Ox
97.8 F 107 12 127/84 99
04/02/24 07:30 04/02/24 07:30 04/02/24 07:30 04/02/24 07:30 04/02/24 07:30
Lab Results - Hematology
03/31/24 04/01/24 04/01/24
06:56 03:21 10:38
WBC 9.1 12.7 H 17.7 H
04/02/24
08:37
WBC 16.3 H
Lab Results - Chemistry
03/31/24 04/01/24 04/01/24
06:56 03:21 10:38
BUN 13 13 12
Creatinine 1.0 1.0 1.0
Estimated Creat Clear > 125 > 125 > 125
04/02/24
08:37
BUN 15
Creatinine 1.1
Estimated Creat Clear 115
Microbiology Results
03/30/24 06:43 Blood Culture - Preliminary
Blood/Venous No Growth in 72 hours- Final report to follow
03/30/24 06:07 Blood Culture - Preliminary
Blood/Venous No Growth in 72 hours- Final report to follow
04/01/24 09:00 Gram Stain - Preliminary
Abdomen
03/30/24 06:11 MRSA Screen - Final
Nose No Methicillin Resistant Staphylococcus aureus isolated.
[2024-04-02] MEDS: OFIRMEV 100 IV ×3 (11:10→22:03)
[2024-04-02] MEDS: TORADOL 15 MG IV ×3 (11:24→22:03)
[2024-04-02] MEDS: NSS 1000 IV (14:21)
--- NOTE | 2024-04-02 15:31 | CM ---
met with patient at bedside.patient is sp segmoid resection/end colostomy.he is npo,ivf,ngt,still on iv dilaudid,started on toradol and iv ativan to help out with opioid usse,iv abx,no withdrawal-off msas protocol.plan dc home with vn.
--- NOTE | 2024-04-02 16:30 | WOUNDNOTE ---
[facility] RN note: Patient's stoma pink and slightly budded. Some sanguinous drainage in pouch. Ostomy appliance intact. Colostomy teaching folder and ostomy supplies in room (Willard wafer # [id number], Willard pouch # [id number]). Instructed patient how to
open and close pouch, cut wafer and snap on pouch. Patient was able to close pouch. He gave permission to call his for pouch change teaching and he gave this curriculum writer permission to order a Willard ostomy secure starter kit.
--- NOTE | 2024-04-02 17:21 | PTCARENOTE ---
Lovenox ordered for patient at 1800. Patient refusing Lovenox subqu. This RN explained importance of Lovenox especially post surgery. Pt. still refusing. Pt. OOB in chair today and walked with PT. SCDs in place per order.
[2024-04-02] MEDS: VANCOCIN 300 ML IV (18:04)
[2024-04-02] MEDS: VANCOCIN 300 MG IV (18:04)
[2024-04-03] VITALS (7 sets, daily range): BP systolic 136–167; BP diastolic 80–112; BMI 35.9
[2024-04-03] MEDS: DILAUDID 1 MG IV
[2024-04-03] MEDS: OFIRMEV 100 IV (03:35)
[2024-04-03] MEDS: NSS 1000 IV ×3 (03:35→23:25)
--- NOTE | 2024-04-03 04:53 | PTCARENOTE ---
02 at 4L while patient sleeping to maintain o2 sats >92% d/t pulse ox drops to 87-89% on 2L when asleep.
[2024-04-03] MEDS: TORADOL 15 MG IV ×4 (05:00→22:39)
[2024-04-03] MEDS: ZOSYN 50 IV ×4 (05:01→23:27)
[2024-04-03] MEDS: VANCOCIN 300 ML IV (05:38)
[2024-04-03] MEDS: VANCOCIN 300 MG IV (05:38)
[2024-04-03 06:28] LABS: Hematocrit 39.4 % (39.0-52.0); Hemoglobin 12.8 g/dL (13.0-18.0); Mean Corp Hgb Conc. 32.5 g/dL (33.0-37.0); Mean Corpuscular Hgb 29.8 pg (27.0-31.0); Mean Corpuscular Volume 91.8 fL (80.0-94.0); Mean Platelet Volume 9.9 fL (7.4-10.4); Platelet Count 312 10^3/uL (130-400); Red Blood Cell Count 4.29 10^6/uL (4.70-6.10); Red Cell Dist. Width 12.7 % (11.5-14.5); White Blood Cell Count 13.4 10^3/uL (4.8-10.8)
[2024-04-03 06:50] LABS: Carbon Dioxide 26 mmol/L (22-30); Estimated Creatinine Clearance 97 ml/min; eGFR > 60.00
[2024-04-03 07:00] LABS: Blood Urea Nitrogen 21 mg/dl (9-20); Calcium 8.3 mg/dl (8.4-10.2); Chloride 106 mmol/L (98-107); Glucose 95 mg/dl (70-99); Sodium 141 mmol/L (135-145)
[2024-04-03] MEDS: DILAUDID 0.5 MG IV ×3 (08:16→20:04)
[2024-04-03] MEDS: NICODERM TRANSDERMAL 14 MG TRANSDERM (08:17)
--- NOTE | 2024-04-03 09:08 | W.PN.HOSP.TC ---
Today's Communication/Plan
-
.
Assessment / Plan
Assessment / Plan
Physical Exam
General: No respiratory distress.
HEENT: Normocephalic and Anicteric. NG
Respiratory: Clear; No Wheezes, Rales or Rhonchi
Cardiac: S1/S2, Regular Rhythm and Tachycardia; No Murmur
GI: sutures clean, + colostomy bag with + stool
Rectal: no bleeding
Genito-urinary: No hematuria.
Musculoskeletal: No Edema
Skin: Warm and Dry
Neuro: AO x 3, followed commands.
Psych: Calm.
#Acute Perforated sigmoid diverticulitis s/p Exploratory laparotomy, sigmoid resection and end colostomy (Helen's procedure) by Dr Martínez 04/01
Less abd pain, no nausea, no vomiting
c/w IV Abx
Pain control , Tylenol, Toradol, Dilaudid, IV Ativan
NG
IVF
+ stool in colostomy bag
WBC is coming down
Appreciate surgery help
#Hyponatremia, resolved
No confusion.
# Acute kidney injury, creatinine improved.
#Essential HTN
Holding losartan
#Daily ETOH use: 3-4 glasses [place] daily
He does not have signs of withdrawal. Passed time for showing withdrawal, ok to be off off MSAS protocol.
# Anxiety, c/w PRN IV Ativan
#DVT prophylaxis, on Thrombo guards.
#History of tobacco use, nicotine patch
# Obesity BMI 35
Total time spent to see the patient, examine the patient on the floor, review data and lab results, discuss treatment plan with patient, nursing staff around 55 minutes
Anticipated Discharge: > 48 hours
Subjective/Interval History
-
Date of Service: April 03, 2024
Feels better, less abd pain with Tylenol IV and Toradol
Objective Data
-
Labs:
Laboratory Results
04/03/24
06:17
WBC 13.4 H
Hgb 12.8 L
Hct 39.4
Plt Count 312
Sodium 141
Potassium 4.0
Chloride 106
Carbon Dioxide 26
BUN 21 H
Creatinine 1.3
Glucose 95
Calcium 8.3 L
Vital Signs:
Vital Signs
Temp Pulse Resp BP Pulse Ox
96.8 F L 96 16 140/93 98
04/03/24 07:30 04/03/24 07:30 04/03/24 07:30 04/03/24 07:30 04/03/24 07:30
I&O
04/02/24 04/03/24 04/04/24
06:59 06:59 06:59
Intake Total 3860 / 3860 3790 / 3790
Output Total 1030 / 1030 2475 / 2475
Balance 2830 / 2830 1315 / 1315
--- NOTE | 2024-04-03 11:26 | W.PN.CRS1 ---
Today's Communication / Plan
-
NGT clamping trial
npo with c/s if removed
Assessment/Plan
-
Assessment: 39-year-old male with a history of sarcoidosis and tobacco abuse presents to the ER for 3 days of abdominal pain and fevers. Started on IV antibiotics and white count is down to 13.[address] abdomen pelvis shows acute diverticulitis
of the sigmoid.
WBC 13.4. Afebrile, vital signs normal.
POD#2 sigmoid resection and end colostomy (Helen's procedure)
1. NGT clamping trial. If removed, NPO with sips and chips.
2. Wound RN for stoma teaching. She will be teaching patient and around noon today. Okay to remove midline bandage and replace with gauze and paper tape.
3. Okay for OOB. Clamp tube for 30 minutes if ambulating.
4. Lovenox for DVT prophylaxis, TEDS and SCDS in place.
5. OR pathology pending.
6. Continue IV antibiotics.
7. Pain control: Dilaudid IV PRN, Tylenol PRN. Will change Tylenol to standing and add Toradol.
8. Appreciate hospitalist.
9. Lui d/c'ed.
Subjective Data
Procedure
04/01/2024- Exploratory laparotomy, sigmoid resection and end colostomy (Helen's procedure)
Subjective Data
Date of Service: April 03, 2024
Patient states he did not have a bad night. He is having flatus. He has abdominal pain but it is controlled. He has flatus in the bag.
Objective Data
-
Vital Signs
Temp Pulse Resp BP Pulse Ox
96.8 F L 96 16 140/93 98
04/03/24 07:30 04/03/24 07:30 04/03/24 07:30 04/03/24 07:30 04/03/24 07:30
Intake & Output
04/02/24 04/03/24 04/04/24
06:59 06:59 06:59
Intake Total 3860 / 3860 3790 / 3790
Output Total 1030 / 1030 2475 / 2475
Balance 2830 / 2830 1315 / 1315
Intake:
IV fluids (Total) 2700 / 2700 2300 / 2300
NSS 300 / 300
IV piggybacks 1100 / 1100 1400 / 1400
Amount instilled into GI Tube ( 60 / 60 90 / 90
Total)
[place] Sump 60 / 60 90 / 90
Output:
Liquid stool amount 20 / 20 25 / 25
Colostomy 10 / 10 25 /
Rectum 10 / 10
Gastrointestinal tube output ( 60 / 60 950 / 950
Total)
[place] Sump 60 / 60 950 / 950
Urine, Lui 950 / 950 1500 / 1500
Other:
Number of unmeasured liquid
stools
Rectum 0
Lab Results
04/03/24 06:17
04/03/24 06:17
Physical Exam
-
General: No Acute Distress and AOx3
Abdomen: Soft, Non Distended, Tender (mild throughout) and Other (colostomy warm and pink with function)
Skin: Warm and Dry
--- NOTE | 2024-04-03 12:00 | PHA.VAN.FU ---
Vancomycin Assessment / Plan
- Assessment
Renal Function: SCR Increasing
In the past 24 hrs, patient has been: Afebrile
Concomitant Antimicrobials: piperacillin/tazobactam
received IV contrast 04/01
- Dosing Plan
Adjust Regimen to: dosing by level as SCR continues to trend up
Dosing Comments: received 1500mg at 05:38 - will hold off on further dosing today
- Monitoring Plan
Random Level: 04/04 0600
Monitoring Comments: BUN & SCR ordered per protocol
- Follow Up
Pharmacy will continue to follow.
Vancomycin Follow UP
- -
Patient Age: 39
Patient Sex: Male
Vancomycin Day #: 3
Indication: Gi / Intra-Abdominal
Requesting Provider: Orquidea Sol
Pertinent Antimicrobial Allergies:
NKDA
Height / Weight:
Height 5 ft 10 in
Actual Weight 113.398 kg
Pertinent Past Medical History: BMI ~36; s/p Hartmanns for perforated sigmoid diverticulitis on 04/01
- Vital Signs / Lab Results
Temp Pulse Resp BP Pulse Ox
97.8 F 97 14 142/90 98
04/03/24 11:50 04/03/24 11:50 04/03/24 11:50 04/03/24 11:50 04/03/24 11:50
Lab Results - Hematology
04/01/24 04/01/24 04/02/24
03:21 10:38 08:37
WBC 12.7 H 17.7 H 16.3 H
04/03/24
06:17
WBC 13.4 H
Lab Results - Chemistry
04/01/24 04/01/24 04/02/24
03:21 10:38 08:37
BUN 13 12 15
Creatinine 1.0 1.0 1.1
Estimated Creat Clear > 125 > 125 115
04/03/24
06:17
BUN 21 H
Creatinine 1.3
Estimated Creat Clear 97
Microbiology Results
04/01/24 09:00 Wound Culture - Preliminary
Abdomen Yeast
Gram Stain - Preliminary
03/30/24 06:07 Blood Culture - Preliminary
Blood/Venous No Growth in 4 days- Final report to follow
03/30/24 06:43 Blood Culture - Preliminary
Blood/Venous No Growth in 4 days- Final report to follow
04/01/24 09:00 Anaerobic Culture - Preliminary
Abdomen Culture pending. Anaerobic cultures are examined after 3
days incubation. Additional information to follow.
--- NOTE | 2024-04-03 12:56 | WOUNDNOTE ---
WO RN Note: Patient stoma almost flush pink with darker crusted edges, measures about 1x1/4 inches. Peristomal skin slightly bruised and intact. Liquid brown stool in pouch. present for teaching. Instructed couple colostomy pouch emptying and
changing using [place] wafer #[id number], Josselin seal and Willard pouch # [id number]. Ostomy supplies and colostomy teaching folder in room. Patient was able to open and close pouch. Patient signed [employer] secure starter kit authorization fax form. Next
appliance change due Saturday. Patient receptive to VN when discharged. Midline abdominal post op Aquacell dressing removed and dry gauze dressing applied per India Kyle's request. Moderate to large amount if dark sanguinous drainage on lower 1/3
of removed dressing. Wick left intact.
--- NOTE | 2024-04-03 14:00 | PTCARENOTE ---
patient residual output 100ml. NG removed as per order. tolerated well. no s/s of distress noted at this time.
[2024-04-03] MEDS: ANESTHETIC LOZENGE 1 LOZENGE PO ×2 (14:08→20:05)
[2024-04-03] MEDS: MYCAMINE 115 MG IV (14:20)
[2024-04-03] MEDS: APRESOLINE 5 MG IV (22:40)
[2024-04-03] MEDS: TYLENOL 650 MG PO (23:25)
[2024-04-04] MEDS: DILAUDID 0.5 MG IV ×5 (01:29→23:39)
[2024-04-04] MEDS: FLUSH (NSS) 2 FLUSH IV ×4 (01:30→23:40)
[2024-04-04 01:53] VITALS: BP 154/93
--- NOTE | 2024-04-04 03:05 | PTCARENOTE ---
Patient did not want vitals retaken at 0300. He just had them done at 0200.
[2024-04-04] MEDS: TORADOL 15 MG IV ×4 (04:41→22:59)
[2024-04-04] MEDS: ANESTHETIC LOZENGE 1 LOZENGE PO ×3 (04:42→19:42)
[2024-04-04] MEDS: ZOSYN 50 IV ×4 (05:46→23:09)
[2024-04-04 06:46] LABS: % Basophils 0.7 % (0-2); % Eosinophils 3.1 % (0-6); % Immature Granulocytes 4.5 % (0-0.5); % Lymphocytes 14.3 % (20.5-51.1); % Monocytes 7.3 % (1.7-9.3); % Neutrophils 70.1 % (42.2-75.2); Absolute Basophils 0.1 10^3/uL (0-0.2); Absolute Eosinophils 0.4 10^3/uL (0-0.7); Absolute Immature Granulocytes 0.5 10^3/uL (0-0.05); Absolute Lymphocytes 1.7 10^3/uL (1.2-3.4); Absolute Monocytes 0.9 10^3/uL (0.1-0.6); Absolute Neutrophils 8.4 10^3/uL (1.4-6.5); Hematocrit 34.5 % (39.0-52.0); Hemoglobin 11.7 g/dL (13.0-18.0); Mean Corp Hgb Conc. 33.9 g/dL (33.0-37.0); Mean Corpuscular Hgb 30.5 pg (27.0-31.0); Mean Corpuscular Volume 89.8 fL (80.0-94.0); Mean Platelet Volume 9.8 fL (7.4-10.4); Nucleated Red Blood Cells % 0 % (-); Platelet Count 344 10^3/uL (130-400); Red Blood Cell Count 3.84 10^6/uL (4.70-6.10); Red Cell Dist. Width 12.6 % (11.5-14.5)
[2024-04-04 07:06] LABS: Vancomycin Random 5.5 ug/ml
[2024-04-04 07:15] LABS: Blood Urea Nitrogen 17 mg/dl (9-20); Estimated Creatinine Clearance > 125 ml/min
--- NOTE | 2024-04-04 07:36 | PHA.VAN.FU ---
Vancomycin Assessment / Plan
- Assessment
Renal Function: SCR Decreasing (1.0->1.1->1.3->1.0)
WBC's are: Trending Down
In the past 24 hrs, patient has been: Febrile (100.6)
Concomitant Antimicrobials: piperacillin-tazobactam
- Assessment - Therapeutic Drug Monitoring
Random Level: 5.5 ~24 hours post 1500 mg dose
- Dosing Plan
Adjust Regimen to: vanc 1500 mg q12 hour
New Regimen Predicts: AUC (540), Peak (34.1), Trough (13.6)
- Monitoring Plan
No level(s) ordered at this time: consider in the upcoming days
- Follow Up
Pharmacy will continue to follow.
Vancomycin Follow UP
- -
Patient Age: 39
Patient Sex: Male
Vancomycin Day #: 4
Indication: Gi / Intra-Abdominal
Requesting Provider: Orquidea Sol/ Wyatt
Pertinent Antimicrobial Allergies:
NKDA
Height / Weight:
Height 5 ft 10 in
Actual Weight 113.398 kg
Pertinent Past Medical History: BMI ~36; s/p Hartmanns for perforated sigmoid diverticulitis on 04/01
- Vital Signs / Lab Results
Temp Pulse Resp BP Pulse Ox
99.1 F 101 18 154/93 98
04/04/24 01:53 04/04/24 01:53 04/03/24 23:36 04/04/24 01:53 04/04/24 01:53
Lab Results - Hematology
04/01/24 04/02/24 04/03/24
10:38 08:37 06:17
WBC 17.7 H 16.3 H 13.4 H
04/04/24
06:19
WBC 12.0 H
Lab Results - Chemistry
04/01/24 04/02/24 04/03/24
10:38 08:37 06:17
BUN 12 15 21 H
Creatinine 1.0 1.1 1.3
Estimated Creat Clear > 125 115 97
04/04/24
06:19
BUN 17
Creatinine 1.0
Estimated Creat Clear > 125
Microbiology Results
03/30/24 06:07 Blood Culture - Final
Blood/Venous No Growth - Final Report
03/30/24 06:43 Blood Culture - Final
Blood/Venous No Growth - Final Report
04/01/24 09:00 Wound Culture - Preliminary
Abdomen Yeast
Gram Stain - Preliminary
04/01/24 09:00 Anaerobic Culture - Preliminary
Abdomen Culture pending. Anaerobic cultures are examined after 3
days incubation. Additional information to follow.
Therapeutic Drug Monitoring
Random Vancomycin 5.5 ug/ml 04/04/24 06:19
[2024-04-04 07:40] VITALS: BP 143/95
--- NOTE | 2024-04-04 08:27 | W.PN.GS2 ---
Today's Communication / Plan
-
Clear liquids
OOB/Ambulate
Assessment / Plan
-
Assessment: 39-year-old male with a history of sarcoidosis and tobacco abuse presented to the ER for 3 days of abdominal pain and fevers. CT abdomen pelvis shows acute diverticulitis of the sigmoid. POD #3 Helen's
Low grade fevers, tachycardic. BP stable
WBC trending down slowly
Mild acute anemia secondary to hemodilution and expected losses, no active bleeding suspected
Stoma healthy with stool/gas present in appliance
--Trend labs
--Start clear liquids
--Decrease IVF
--Multimodal analgesics
--OOB/Ambulate
--Continue abx
--Lovenox sq for VTE ppx
--Medical management as per primary team
Subjective Data
-
Date of Service: April 04, 2024
Patient seen and examined at bedside with Dr. Lemons. Denies n/v. Tolerating sips of clears. Passing flatus/stool via stoma. Pain well controlled. Voiding well
Objective Data
-
Intake and Output
04/03/24 04/04/24 04/05/24
06:59 06:59 06:59
Intake Total 3790 / 3790 1320 / 1320
Output Total 2475 / 2475 1410 / 1410
Balance 1315 / 1315 -90 / -90
Intake:
Oral fluids 20 / 20
IV fluids (Total) 2300 / 2300 1200 / 1200
IV piggybacks 1400 / 1400 100 / 100
Amount instilled into GI Tube ( 90 /
Total)
[place] Sump 90 / 90
Output:
Liquid stool amount 25 / 25 460 / 460
Colostomy 25 / 25 460 / 460
Gastrointestinal tube output ( 950 / 950 450 / 450
Total)
[place] Sump 950 / 950 450 / 450
Urine, Lui 1500 / 1500
Urine, Voided 500 / 500
Other:
Number of approximated MODERATE 4
amounts of urine
Number of unmeasured liquid
stools
Rectum 0
Vital Signs
Temp Pulse Resp BP Pulse Ox
98.3 F 88 16 143/95 98
04/04/24 07:40 04/04/24 07:40 04/04/24 07:40 04/04/24 07:40 04/04/24 07:40
Lab Results
04/04/24 06:19
04/04/24 06:19
Calcium 8.3 mg/dl (8.4-10.2) L 04/03/24 06:17
Phosphorus 3.4 mg/dl (2.5-4.5) 03/30/24 06:07
Magnesium 2.4 mg/dl (1.6-2.3) H 03/30/24 06:07
Total Bilirubin 1.5 mg/dl (0.2-1.3) H 03/29/24 19:41
AST 32 U/L (17-59) 03/29/24 19:41
ALT 40 U/L (0-50) 03/29/24 19:41
Alkaline Phosphatase 88 U/L (38-126) 03/29/24 19:41
Total Protein 7.8 g/dl (6.3-8.2) 03/29/24 19:41
Albumin 4.1 g/dl (3.5-5.0) 03/29/24 19:41
Physical Exam
-
NAD
ABD soft, mild distention, expected incisional tenderness, [employer], exam limitied d/t obese abd.
Stoma pink, viable. Productive of liquid stool/flatus
[2024-04-04] MEDS: VANCOCIN 300 MG IV (08:32)
[2024-04-04] MEDS: VANCOCIN 300 ML IV (08:32)
[2024-04-04] MEDS: NICODERM TRANSDERMAL 14 MG TRANSDERM (08:32)
[2024-04-04] MEDS: NSS 1000 IV ×2 (08:33→23:04)
--- NOTE | 2024-04-04 09:20 | W.PN.HOSP.TC ---
Today's Communication/Plan
-
.
Assessment / Plan
Assessment / Plan
Physical Exam
General: No respiratory distress.
HEENT: Normocephalic and Anicteric. NG
Respiratory: Clear; No Wheezes, Rales or Rhonchi
Cardiac: S1/S2, Regular Rhythm and Tachycardia; No Murmur
GI: sutures clean, + colostomy bag with + stool. + BS
Rectal: no bleeding
Genito-urinary: No hematuria.
Musculoskeletal: No Edema
Skin: Warm and Dry
Neuro: AO x 3, followed commands.
Psych: Calm.
#Acute Perforated sigmoid diverticulitis s/p Exploratory laparotomy, sigmoid resection and end colostomy (Helen's procedure) by Dr Martínez 04/01
Less abd pain, no nausea, no vomiting
c/w IV Abx. Fluid culture showing yeast.
Pain control , Tylenol, Toradol, Dilaudid, IV Ativan
NG removed 04/03
IVF
Good Bowel sounds, might start clear liquids
+ stool in colostomy bag
WBC is coming down
Appreciate surgery help
#Hyponatremia, resolved
No confusion.
# Acute kidney injury, creatinine improved.
#Essential HTN
Holding losartan
#Daily ETOH use: 3-4 glasses [place] daily
He does not have signs of withdrawal. Passed time for showing withdrawal, ok to be off off MSAS protocol.
# Anxiety, c/w PRN IV Ativan
#DVT prophylaxis, on Thrombo guards.
#History of tobacco use, nicotine patch
# Obesity BMI 35
Total time spent to see the patient, examine the patient on the floor, review data and lab results, discuss treatment plan with patient, nursing staff around 55 minutes
Anticipated Discharge: > 48 hours
Subjective/Interval History
-
Date of Service: April 04, 2024
No chest pain
No sob
No worsening abd pain
No nausea
Objective Data
-
Labs:
Laboratory Results
04/04/24
06:19
WBC 12.0 H
Hgb 11.7 L
Hct 34.5 L
Plt Count 344
BUN 17
Creatinine 1.0
Vital Signs:
Vital Signs
Temp Pulse Resp BP Pulse Ox
98.3 F 88 16 143/95 98
04/04/24 07:40 04/04/24 07:40 04/04/24 07:40 04/04/24 07:40 04/04/24 07:40
I&O
04/03/24 04/04/24 04/05/24
06:59 06:59 06:59
Intake Total 3790 / 3790 1320 / 1320
Output Total 2475 / 2475 1410 / 1410
Balance 1315 / 1315 -90 / -90
[2024-04-04 11:25] VITALS: BP 154/96
--- NOTE | 2024-04-04 13:12 | CON.ID ---
Consultation
-
Date/Time Consultation Requested: 04/04/2024 09:44
Date/Time Consultation Performed: 04/04/2024 1245
Requesting Provider: Dr. Schneider
Performing Provider: Dr. Good
Reason for Consultation: Fungal peritonitis
Chief Complaint / Past History
History of Present Illness
Douglas Ryan is a 39-year-old man being evaluated at the request of Dr. Schneider in regards to fungal peritonitis. History is obtained from chart review, along with patient interview.
The patient presented to [facility] on 03/09/2024 following the development of left lower quadrant pain with associated fevers and chills and diminished appetite over the prior 3 days. The morning of admission he had developed a fever but was
not having any nausea or vomiting. Workup in the ER revealed an elevated white count of 17.6 and acute sigmoid diverticulitis with microperforation on imaging.
On 04/01, the patient developed spiking fevers, increasing abdominal pain and became tachycardic. Repeat imaging revealed a loculated fluid collection, and the patient was taken to the OR that morning, undergoing an exploratory laparotomy with
sigmoid resection and end colostomy. Cultures from the OR revealed growth of yeast, and Infectious Diseases is asked to comment upon further antimicrobial therapy.
At this time, the patient reports feeling improved. He reports a slight fever last a.m., but overall feels well.
Past History
Additional Past Medical History:
GERD
HTN
Sarcoidosis
Additional Past Surgical History:
EGD
Allergy History:
No Known Allergies Allergy (Verified 03/29/24 19:05)
Medications Reviewed: Yes
Current Antibiotics:
Vancomycin
Zosyn 3.375 g IV every 6 hours
Micafungin 150 mg IV every 24 hours
Social History
Tobacco: Smoker
Alcohol: Daily
Drug: None
Personal:
Living: With Family
Employment: Employed
Family History
Family History: Not Pertinent
Review of Systems
Vital Signs
Temp Pulse Resp BP Pulse Ox
99.6 F 105 20 154/96 97
04/04/24 11:25 04/04/24 11:25 04/04/24 11:25 04/04/24 11:25 04/04/24 11:25
Physical Exam
Physical Exam
Constitutional: No Acute Distress, Well Developed, Comfortable, Non-toxic and Obese
Head: Normocephalic
Eyes: Pupils Equal, Pupils Round, No Conjunctival Hemorrhage and Sclera Anicteric
Oral: No Thrush and No Ulcers
Cardiovascular: S1/S2; Negative S3/S4
Pulmonary: Clear; Negative Wheezes, Rales or Rhonchi
Gastrointestinal: Soft, Non Distended, Normal Bowel Sounds, No Rebound, No Guarding and Other (Ostomy in place.)
Genito-Urinary: Negative Lui
Extremities: Negative Edema, Clubbing or Cyanosis
Wound: Other (Abdominal incision dressed.)
Neurological: Awake, Alert and Oriented
Psychological: Calm
.
Lab / Diagnostic Study Results
04/04/24 06:19
04/04/24 06:19
Abs Immat Gran (auto) 0.5 10^3/uL (0-0.05) H 04/04/24 06:19
Absolute Neuts (auto) 8.4 10^3/uL (1.4-6.5) H 04/04/24 06:19
Absolute Lymphs (auto) 1.7 10^3/uL (1.2-3.4) 04/04/24 06:19
Absolute Monos (auto) 0.9 10^3/uL (0.1-0.6) H 04/04/24 06:19
Absolute Basos (auto) 0.1 10^3/uL (0-0.2) 04/04/24 06:19
Immature Gran % 4.5 % (0-0.5) H 04/04/24 06:19
Neutrophils % 70.1 % (42.2-75.2) 04/04/24 06:19
Lymphocytes % 14.3 % (20.5-51.1) L 04/04/24 06:19
Monocytes % 7.3 % (1.7-9.3) 04/04/24 06:19
Eosinophils % 3.1 % (0-6) 04/04/24 06:19
Basophils % 0.7 % (0-2) 04/04/24 06:19
PT 15.7 Sec (11.4-14.6) H 03/30/24 06:07
INR 1.27 03/30/24 06:07
Procalcitonin 0.52 ng/ml (0.0-0.25) H 04/01/24 03:21
Ur Squamous Epith Cells 3-5 /LPF (Few) 03/30/24 01:46
Microbiology Results
Micro:
03/30/24 06:07 Blood Culture - Final
Blood/Venous No Growth - Final Report
03/30/24 06:43 Blood Culture - Final
Blood/Venous No Growth - Final Report
04/01/24 09:00 Wound Culture - Preliminary
Abdomen Yeast
Gram Stain - Preliminary
04/01/24 09:00 Anaerobic Culture - Preliminary
Abdomen Culture pending. Anaerobic cultures are examined after 3
days incubation. Additional information to follow.
03/30/24 06:11 MRSA Screen - Final
Nose No Methicillin Resistant Staphylococcus aureus isolated.
Imaging:
04/01/2024 CT abdomen/pelvis with contrast: Progressed findings suggesting bowel perforation due to acute diverticulitis. There is moderate pericolic stranding around the proximal sigmoid colon, with scattered diverticula consistent with active
diverticulitis. There is increased extraluminal air adjacent to the diseased sigmoid colon measuring 1.7 x 1.0 cm and has suggestion of thin developing wall and a small air-fluid level.
Assessment / Plan
Sigmoid diverticulitis with perforation and abscess
Leukocytosis
Fever
GERD
HTN
Sarcoidosis
Recommendations:
Continue with Zosyn and micafungin for the present.
Previously discussed with Clinical ID Pharmacist. Patient on higher dose of micafungin given weight/BMI.
No resistant organisms recovered; discontinue further vancomycin.
Monitor white count temperature curve. Likely eventual transition to an oral regimen, possibly Augmentin/Diflucan.
Care Review
Plan reviewed with: Physician (Hospitalist)
[2024-04-04] MEDS: MYCAMINE 115 MG IV (14:19)
[2024-04-04] MEDS: DILAUDID 1 MG IV (14:52)
[2024-04-04 15:30] VITALS: BP 151/106
[2024-04-04 19:41] VITALS: BP 159/98
[2024-04-05] VITALS (8 sets, daily range): BP systolic 144–165; BP diastolic 93–108
[2024-04-05] MEDS: FLUSH (NSS) 2 FLUSH IV (03:38)
[2024-04-05] MEDS: DILAUDID 0.5 MG IV ×5 (03:39→23:13)
[2024-04-05] MEDS: ANESTHETIC LOZENGE 1 LOZENGE PO ×4 (03:46→19:13)
[2024-04-05] MEDS: TORADOL 15 MG IV ×4 (05:18→21:57)
[2024-04-05] MEDS: ZOSYN 50 IV ×4 (05:18→23:06)
[2024-04-05 07:07] LABS: Hematocrit 34.2 % (39.0-52.0); Hemoglobin 11.7 g/dL (13.0-18.0); Mean Corp Hgb Conc. 34.2 g/dL (33.0-37.0); Mean Corpuscular Hgb 30.2 pg (27.0-31.0); Mean Corpuscular Volume 88.1 fL (80.0-94.0); Mean Platelet Volume 9.5 fL (7.4-10.4); Platelet Count 352 10^3/uL (130-400); Red Blood Cell Count 3.88 10^6/uL (4.70-6.10); Red Cell Dist. Width 12.8 % (11.5-14.5); White Blood Cell Count 11.1 10^3/uL (4.8-10.8)
[2024-04-05 07:26] LABS: Blood Urea Nitrogen 13 mg/dl (9-20); Calcium 8.2 mg/dl (8.4-10.2); Carbon Dioxide 22 mmol/L (22-30); Chloride 102 mmol/L (98-107); Estimated Creatinine Clearance > 125 ml/min; Glucose 93 mg/dl (70-99); Potassium 3.9 mmol/L (3.5-5.1); Sodium 133 mmol/L (135-145); eGFR > 60.00
[2024-04-05] MEDS: NICODERM TRANSDERMAL 14 MG TRANSDERM (07:58)
[2024-04-05] MEDS: NSS 1000 IV (07:59)
--- NOTE | 2024-04-05 09:33 | W.PN.HOSP.TC ---
Today's Communication/Plan
-
Use Ativan to decrease need for Dilaudid
Encourage ambulation, use of IS
No need for more IVF
Assessment / Plan
Assessment / Plan
Physical Exam
General: No respiratory distress.
HEENT: Normocephalic and Anicteric. NG
Respiratory: Clear; No Wheezes, Rales or Rhonchi
Cardiac: S1/S2, Regular Rhythm and Tachycardia; No Murmur
GI: sutures clean, + colostomy bag with + stool. + BS
Rectal: no bleeding
Genito-urinary: No hematuria.
Musculoskeletal: No Edema
Skin: Warm and Dry
Neuro: AO x 3, followed commands.
Psych: Calm.
#Acute Perforated sigmoid diverticulitis s/p Exploratory laparotomy, sigmoid resection and end colostomy (Helen's procedure) by Dr Martínez 04/01
Evolving sepsis
Less abd pain, no nausea, no vomiting
c/w IV Abx ( Zosyn) . Fluid culture showing yeast. Added anti-fungal #2
Pain control , Tylenol, Toradol, Dilaudid, IV Ativan. Cut back on Toradol.
NG removed 04/03
CAn stop IVF, tolerating liquid diet
Good Bowel sounds,
+ stool in colostomy bag
WBC is coming down
Appreciate surgery & ID help
#Hyponatremia, resolved
No confusion.
# Acute kidney injury, creatinine improved.
#Essential HTN
BP starting to go uo, resume losartan
#Daily ETOH use: 3-4 glasses [place] daily
He does not have signs of withdrawal. Passed time for showing withdrawal, ok to be off off MSAS protocol.
# Anxiety, c/w PRN IV Ativan
#DVT prophylaxis, on Thrombo guards.
#History of tobacco use, nicotine patch
# Obesity BMI 35
Total time spent to see the patient, examine the patient on the floor, review data and lab results, discuss treatment plan with patient, nursing staff around 55 minutes
Anticipated Discharge: > 48 hours
Subjective/Interval History
-
Date of Service: April 05, 2024
Tolerating liquids
No fevers
Still asks for pain medicine
Objective Data
-
Labs:
Laboratory Results
04/05/24
06:50
WBC 11.1 H
Hgb 11.7 L
Hct 34.2 L
Plt Count 352
Sodium 133 L D
Potassium 3.9
Chloride 102
Carbon Dioxide 22
BUN 13
Creatinine 1.0
Glucose 93
Calcium 8.2 L
Vital Signs:
Vital Signs
Temp Pulse Resp BP Pulse Ox
99.2 F 88 16 156/106 98
04/05/24 07:35 04/05/24 07:35 04/05/24 07:35 04/05/24 07:35 04/05/24 07:35
I&O
04/04/24 04/05/24 04/06/24
06:59 06:59 06:59
Intake Total 1320 / 1320 2740 / 2740
Output Total 1410 / 1410 850 / 850
Balance -90 / -90 1889 / 189
--- NOTE | 2024-04-05 09:59 | W.PN.GS2 ---
Today's Communication / Plan
-
--Fulls
--HLIV
--Pain control: Tylenol, Toradol, Oxycodone
--OOB/Ambulate
--Continue abx, ID consult noted
Assessment / Plan
-
Assessment: 39-year-old male with a history of sarcoidosis and tobacco abuse presented to the ER for 3 days of abdominal pain and fevers. CT abdomen pelvis shows acute diverticulitis of the sigmoid. POD#4 Helen's
AVSS
WBC trending down
Mild acute anemia secondary to hemodilution and expected losses, no active bleeding suspected, currently stable
Stoma healthy with stool/gas present in appliance
--Fulls
--HLIV
--Pain control: Tylenol, Toradol, Oxycodone
--OOB/Ambulate
--Continue abx, ID consult noted
--Lovenox sq for VTE ppx
--Medical management as per primary team
Subjective Data
-
Date of Service: April 05, 2024
No major complaints. Feels improved. Pain well-controlled, though reports some soreness with movement. No nausea or vomiting. Notes flatus and stools from ostomy. Afebrile for 24 hours. Voiding.
Objective Data
-
Intake and Output
04/04/24 04/05/24 04/06/24
06:59 06:59 06:59
Intake Total 1320 / 1320 2740 / 2740
Output Total 1410 / 1410 850 / 850
Balance -90 / -90 1890 / 1890
Intake:
Oral fluids 20 / 20 1680 / 1680
IV fluids (Total) 1200 / 1200 960 / 960
IV piggybacks 100 / 100 100 / 100
Output:
Liquid stool amount 460 / 460 850 / 850
Colostomy 460 / 460 850 / 850
Gastrointestinal tube output ( 450 / 450
Total)
[place] Sump 450 / 450
Urine, Voided 500 / 500
Other:
Number of approximated MODERATE 4 5
amounts of urine
Vital Signs
Temp Pulse Resp BP Pulse Ox
99.2 F 88 16 156/106 98
04/05/24 07:35 04/05/24 07:35 04/05/24 07:35 04/05/24 07:35 04/05/24 07:35
Lab Results
04/05/24 06:50
04/05/24 06:50
Calcium 8.2 mg/dl (8.4-10.2) L 04/05/24 06:50
Phosphorus 3.4 mg/dl (2.5-4.5) 03/30/24 06:07
Magnesium 2.4 mg/dl (1.6-2.3) H 03/30/24 06:07
Total Bilirubin 1.5 mg/dl (0.2-1.3) H 03/29/24 19:41
AST 32 U/L (17-59) 03/29/24 19:41
ALT 40 U/L (0-50) 03/29/24 19:41
Alkaline Phosphatase 88 U/L (38-126) 03/29/24 19:41
Total Protein 7.8 g/dl (6.3-8.2) 03/29/24 19:41
Albumin 4.1 g/dl (3.5-5.0) 03/29/24 19:41
Physical Exam
-
Patient up and ambulating in the halls, a physical exam was not performed during today's encounter as this was unlikely to change clinical management
[2024-04-05] MEDS: COZAAR 50 MG PO (10:36)
--- NOTE | 2024-04-05 11:45 | W.PN.ID1 ---
Date of Service
Date of Service: April 05, 2024
Today's Communication
Continue antibiotics.
Assessment / Plan
Sigmoid diverticulitis with perforation and abscess
Leukocytosis
Fungal peritonitis
Fever
GERD
HTN
Sarcoidosis
Recommendations:
Continue with Zosyn and micafungin for the present.
- Previously discussed with Clinical ID Pharmacist. Patient on higher dose of micafungin given weight/BMI.
Monitor white count temperature curve.
Likely eventual transition to an oral regimen, possibly Augmentin/Diflucan.
����������������������������������������������������������
Chief Complaint
-: Other (Fungal peritonitis)
Subjective / Review of Systems
Review of Systems: No Fever and No Chills
Vital Signs / Physical Exam
Vital Signs
Vital Signs
Temp Pulse Resp BP Pulse Ox
98.8 F 100 18 144/98 95
04/05/24 11:00 04/05/24 11:00 04/05/24 11:00 04/05/24 11:00 04/05/24 11:00
Physical Exam
Constitutional: No Acute Distress, Comfortable and Non-toxic
Eyes: Sclera Anicteric
Pulmonary: Non Labored
Gastrointestinal: Non Distended and Other (Ostomy in place.)
Extremities: Negative Cyanosis or Erythema
Neurological: Awake and Alert
Psychological: Calm
Objective Data
Lab Data
Lab Results
04/05/24 06:50
04/05/24 06:50
PT 15.7 Sec (11.4-14.6) H 03/30/24 06:07
INR 1.27 03/30/24 06:07
APTT 36.2 Sec (23.4-35.0) H 03/30/24 06:07
Estimated Creat Clear > 125 ml/min 04/05/24 06:50
Total Bilirubin 1.5 mg/dl (0.2-1.3) H 03/29/24 19:41
GGT 167 U/L (15-73) H 03/30/24 06:07
AST 32 U/L (17-59) 03/29/24 19:41
ALT 40 U/L (0-50) 03/29/24 19:41
Alkaline Phosphatase 88 U/L (38-126) 03/29/24 19:41
Most recent labs reviewed.
Micro Results:
04/01/24 09:00 Anaerobic Culture - Preliminary
Abdomen Culture pending. Anaerobic cultures are examined after 3
days incubation. Additional information to follow.
04/01/24 09:00 Wound Culture - Preliminary
Abdomen Yeast
Gram Stain - Preliminary
03/30/24 06:07 Blood Culture - Final
Blood/Venous No Growth - Final Report
03/30/24 06:43 Blood Culture - Final
Blood/Venous No Growth - Final Report
03/30/24 06:11 MRSA Screen - Final
Nose No Methicillin Resistant Staphylococcus aureus isolated.
Imaging:
04/01/2024 CT abdomen/pelvis with contrast: Progressed findings suggesting bowel perforation due to acute diverticulitis. There is moderate pericolic stranding around the proximal sigmoid colon, with scattered diverticula consistent with active
diverticulitis. There is increased extraluminal air adjacent to the diseased sigmoid colon measuring 1.7 x 1.0 cm and has suggestion of thin developing wall and a small air-fluid level.
[2024-04-05] MEDS: MYCAMINE 115 MG IV (14:51)
[2024-04-06] VITALS (7 sets, daily range): BP systolic 128–146; BP diastolic 80–108
[2024-04-06] MEDS: DILAUDID 0.5 MG IV ×4 (03:24→23:08)
[2024-04-06] MEDS: ANESTHETIC LOZENGE 1 LOZENGE PO ×3 (03:27→21:50)
[2024-04-06] MEDS: ZOSYN 50 IV ×3 (05:13→17:37)
[2024-04-06] MEDS: NSS (PRESERVATIVE FREE) 0.5 ML IV (05:48)
[2024-04-06] MEDS: ATIVAN 1 MG IV (05:48)
[2024-04-06 06:52] LABS: Hemoglobin 12.3 g/dL (13.0-18.0); Mean Corp Hgb Conc. 34.2 g/dL (33.0-37.0); Mean Corpuscular Hgb 29.5 pg (27.0-31.0); Mean Corpuscular Volume 86.3 fL (80.0-94.0); Mean Platelet Volume 9.7 fL (7.4-10.4); Platelet Count 410 10^3/uL (130-400); Red Blood Cell Count 4.17 10^6/uL (4.70-6.10); Red Cell Dist. Width 12.6 % (11.5-14.5); White Blood Cell Count 12.2 10^3/uL (4.8-10.8)
[2024-04-06 07:29] LABS: Blood Urea Nitrogen 10 mg/dl (9-20); Calcium 8.6 mg/dl (8.4-10.2); Carbon Dioxide 23 mmol/L (22-30); Chloride 101 mmol/L (98-107); Estimated Creatinine Clearance > 125 ml/min; Glucose 113 mg/dl (70-99); Sodium 134 mmol/L (135-145); eGFR > 60.00
--- NOTE | 2024-04-06 08:21 | W.PN.CRS1 ---
Addendum entered and electronically signed by Jerrod Lemons MD 04/06/24 08:46:
Patient seen and examined. Agree with assessment plan as documented below.
Abdominal soreness and cramping. No nausea or vomiting. Continues to pass flatus and stool via ostomy. Admits to drinking large volumes of fluid and attempt to maintain hydration, voiding. Ambulating. Afebrile.
Gen: NAD, more uncomfortable compared to yesterday
Abd: soft, mild tenderness, obese, mild distension, non-peritoneal, ostomy PPV - stool and flatus in appliance, incisions c/d/i - no erythema, ecchymosis or drainage, donavan in place
Patient is a 39-year-old male with a history of sarcoidosis and tobacco abuse presents to the ER for 3 days of abdominal pain and fevers. Started on IV antibiotics and white count is 12.[address] abdomen pelvis shows acute diverticulitis of the
sigmoid.
WBC 13.4. Afebrile, vital signs normal.
POD#5 sigmoid resection and end colostomy (Helen's procedure)
1. Continue on fulls today. Patient still with some pain.
2. Wound RN for stoma teaching. Okay to remove midline bandage and replace with gauze and paper tape (done this AM on rounds).
3. OOB as tolerated.
4. Lovenox for DVT prophylaxis, TEDS and SCDS in place.
5. OR pathology pending.
6. Continue IV antibiotics. Appreciate ID.
7. Pain control: Dilaudid IV PRN, Tylenol/Toradol standing.
8. Appreciate hospitalist.
9. Continue to monitor WBC. If trending up, will consider a repeat CT.
Original Note:
Today's Communication / Plan
-
stay on fulls today
continue abx
Assessment/Plan
-
Assessment: 39-year-old male with a history of sarcoidosis and tobacco abuse presents to the ER for 3 days of abdominal pain and fevers. Started on IV antibiotics and white count is 12.[address] abdomen pelvis shows acute diverticulitis of the
sigmoid.
WBC 13.4. Afebrile, vital signs normal.
POD#5 sigmoid resection and end colostomy (Helen's procedure)
1. Continue on fulls today. Patient still with some pain.
2. Wound RN for stoma teaching. Okay to remove midline bandage and replace with gauze and paper tape (done this AM on rounds).
3. OOB as tolerated.
4. Lovenox for DVT prophylaxis, TEDS and SCDS in place.
5. OR pathology pending.
6. Continue IV antibiotics. Appreciate ID.
7. Pain control: Dilaudid IV PRN, Tylenol/Toradol standing.
8. Appreciate hospitalist.
9. Continue to monitor WBC. If trending up, will consider a repeat CT.
Subjective Data
Procedure
04/01/2024- Exploratory laparotomy, sigmoid resection and end colostomy (Helen's procedure)
Subjective Data
Date of Service: April 06, 2024
Patient states he is 'sore'. He has no nausea or vomiting. He has mild pain throughout his abdomen near his incision. He has been urinating quite a bit due to drinking several bottles of water.
Objective Data
-
Vital Signs
Temp Pulse Resp BP Pulse Ox
98.2 F 100 20 140/108 97
04/06/24 03:26 04/06/24 03:26 04/06/24 03:26 04/06/24 03:26 04/06/24 03:26
Intake & Output
04/05/24 04/06/24 04/07/24
06:59 06:59 06:59
Intake Total 2740 / 2740 2440 / 2440
Output Total 850 / 850 450 / 450
Balance 1890 / 1890 1989 / 1989
Intake:
Oral fluids 1680 / 1680 2440 / 2440
IV fluids (Total) 960 / 960
IV piggybacks 100 / 100
Output:
Liquid stool amount 850 / 850 450 / 450
Colostomy 850 / 850 450 / 450
Other:
Number of approximated SMALL 7
amounts of urine
Number of approximated MODERATE 5 5
amounts of urine
Lab Results
04/06/24 05:59
04/06/24 05:59
Physical Exam
-
General: No Acute Distress and AOx3
Abdomen: Soft, Non Distended and Tender (mild around incision )
Wound: Dressing Changed (replaced with gauze and tape, donavan in place)
[2024-04-06] MEDS: NICODERM TRANSDERMAL 14 MG TRANSDERM (08:41)
[2024-04-06] MEDS: COZAAR 50 MG PO (08:43)
[2024-04-06] MEDS: TORADOL 15 MG IV ×2 (08:43→21:47)
--- NOTE | 2024-04-06 09:38 | PTCARENOTE ---
pt hypertensive this AM. manual taken 142/102 on [facility]IS. pt received 50mg Cozaar this AM. pt states that it took about two months when he initially got put on it for it to make his BP manageable. follow up BP after scheduled medications was 166/104 on
ALEXIS. 162/102 on PAO. made aware. prn hydralazine and prn pain medication to be given through L forearm IV site. See MAR for proper documentation.
--- NOTE | 2024-04-06 12:11 | W.PN.ID1 ---
Date of Service
Date of Service: April 06, 2024
Today's Communication
Continue antibiotics. Monitor WBC count.
Assessment / Plan
Sigmoid diverticulitis with perforation and abscess
Leukocytosis
Fungal peritonitis
Fever
GERD
HTN
Sarcoidosis
Recommendations:
Continue with Zosyn and micafungin for the present.
- Previously discussed with Clinical ID Pharmacist and patient on higher dose of micafungin given weight/BMI.
Monitor white count temperature curve.
Likely eventual transition to an oral regimen, possibly Augmentin/Diflucan.
����������������������������������������������������������
Chief Complaint
-: Other (Fungal peritonitis)
Subjective / Review of Systems
Review of Systems: No Fever and No Chills
Vital Signs / Physical Exam
Vital Signs
Vital Signs
Temp Pulse Resp BP Pulse Ox
98.0 F 96 18 135/89 96
04/06/24 11:17 04/06/24 11:17 04/06/24 11:17 04/06/24 11:17 04/06/24 11:17
Physical Exam
Constitutional: No Acute Distress, Comfortable and Non-toxic
Eyes: Sclera Anicteric
Cardiovascular: S1/S2; Negative S3/S4
Pulmonary: Clear and Non Labored
Gastrointestinal: Non Distended and Other (Ostomy in place.)
Extremities: Negative Cyanosis or Erythema
Skin: Negative Rash or Jaundice
Neurological: Awake and Alert
Psychological: Calm
Objective Data
Lab Data
Lab Results
04/06/24 05:59
04/06/24 05:59
PT 15.7 Sec (11.4-14.6) H 03/30/24 06:07
INR 1.27 03/30/24 06:07
APTT 36.2 Sec (23.4-35.0) H 03/30/24 06:07
Estimated Creat Clear > 125 ml/min 04/06/24 05:59
Total Bilirubin 1.5 mg/dl (0.2-1.3) H 03/29/24 19:41
GGT 167 U/L (15-73) H 03/30/24 06:07
AST 32 U/L (17-59) 03/29/24 19:41
ALT 40 U/L (0-50) 03/29/24 19:41
Alkaline Phosphatase 88 U/L (38-126) 03/29/24 19:41
Most recent labs reviewed.
Micro Results:
04/01/24 09:00 Wound Culture - Final
Abdomen Yeast
Gram Stain - Final
04/01/24 09:00 Anaerobic Culture - Final
Abdomen
04/06/24 09:57 MRSA Screen - Pending
Nose
03/30/24 06:07 Blood Culture - Final
Blood/Venous No Growth - Final Report
03/30/24 06:43 Blood Culture - Final
Blood/Venous No Growth - Final Report
03/30/24 06:11 MRSA Screen - Final
Nose No Methicillin Resistant Staphylococcus aureus isolated.
Imaging:
04/01/2024 CT abdomen/pelvis with contrast: Progressed findings suggesting bowel perforation due to acute diverticulitis. There is moderate pericolic stranding around the proximal sigmoid colon, with scattered diverticula consistent with active
diverticulitis. There is increased extraluminal air adjacent to the diseased sigmoid colon measuring 1.7 x 1.0 cm and has suggestion of thin developing wall and a small air-fluid level.
Care Review
Plan reviewed with: Physician (Hospitalist)
--- NOTE | 2024-04-06 13:15 | W.PN.HOSP.TC ---
Today's Communication/Plan
-
diet per GS
anti-microbials as per ID
Assessment / Plan
Assessment / Plan
Assessment:
Acute Perforated sigmoid diverticulitis s/p Exploratory laparotomy, sigmoid resection and end colostomy (Helen's procedure) by Dr Martínez 04/01
Evolving sepsis
- continue Zosyn
- continue Micafungin
- follow cultures, follow ID recs
- follow WBC, if rising may need
- s/p NGT removed 04/03
- diet: Full liquids
- Ostomy service following
- CRS following
Hyponatremia
UBALDO
- resolved
Essential HTN
- continue Losartan
- prn Hydralazine
Daily ETOH use: 3-4 glasses [place] daily
- He does not have signs of withdrawal. Passed time for showing withdrawal, ok to be off off MSAS protocol.
Anxiety
- continue prn Ativan
History of tobacco use, nicotine patch
Obesity BMI 35
DVT ppx: SCDs
Code: Full
Anticipated Discharge: > 48 hours
Subjective/Interval History
-
Date of Service: April 06, 2024
no fever/chills in light of slight rise in WBC
pain controlled just feels sore
Objective Data
-
Labs:
Laboratory Results
04/06/24
05:59
WBC 12.2 H
Hgb 12.3 L
Hct 36.0 L
Plt Count 410 H
Sodium 134 L
Potassium 4.0
Chloride 101
Carbon Dioxide 23
BUN 10
Creatinine 1.0
Glucose 113 H
Calcium 8.6
Vital Signs:
Vital Signs
Temp Pulse Resp BP Pulse Ox
98.0 F 96 18 135/89 96
04/06/24 11:17 04/06/24 11:17 04/06/24 11:17 04/06/24 11:17 04/06/24 11:17
I&O
04/05/24 04/06/24 04/07/24
06:59 06:59 06:59
Intake Total 2740 / 2740 2440 / 2440
Output Total 850 / 850 450 / 450
Balance 1889 / 1889
Physical Exam
-
General: No Apparent Distress
HEENT: Normocephalic and Atraumatic
Respiratory: Negative Wheezes
Cardiac: Regular Rhythm and S1/S2
GI: Soft
Genito-urinary: No Costovertebral Tender
Musculoskeletal: No Edema
Neuro: AO x 3
Hematologic / Lymphatic: No Lymphadenopathy
Psych: Calm
Data Reviewed
-
Total Time Spent with Patient (in minutes): 45
Labs: Labs Reviewed by me
--- NOTE | 2024-04-06 14:06 | CM ---
CM reviewed pt with Dr. Uribe- ADC 1-2 days pending labs and diet
Plan remains home with [facility] who has accepted for service for new ostomy care
CM will continue to follow for dc planning
VN order on chart
Discharge Disposition- home with [facility]
[2024-04-06] MEDS: MYCAMINE 115 MG IV (15:25)
[2024-04-06] MEDS: ROXICODONE 5 MG PO (21:15)
[2024-04-07 03:28] VITALS: BP 136/87
[2024-04-07] MEDS: ANESTHETIC LOZENGE PO (03:28)
[2024-04-07] MEDS: ANESTHETIC LOZENGE 1 LOZENGE PO ×3 (03:30→17:17)
[2024-04-07] MEDS: DILAUDID 0.5 MG IV ×5 (04:20→22:53)
[2024-04-07] MEDS: ZOSYN 50 IV ×5 (05:55→23:55)
[2024-04-07 06:38] LABS: % Basophils 0.7 % (0-2); % Immature Granulocytes 6.9 % (0-0.5); % Lymphocytes 11.1 % (20.5-51.1); % Neutrophils 68.3 % (42.2-75.2); Absolute Basophils 0.1 10^3/uL (0-0.2); Absolute Eosinophils 0.4 10^3/uL (0-0.7); Absolute Immature Granulocytes 0.9 10^3/uL (0-0.05); Absolute Lymphocytes 1.5 10^3/uL (1.2-3.4); Absolute Monocytes 1.4 10^3/uL (0.1-0.6); Absolute Neutrophils 9.3 10^3/uL (1.4-6.5); Hematocrit 33.5 % (39.0-52.0); Hemoglobin 11.1 g/dL (13.0-18.0); Mean Corp Hgb Conc. 33.1 g/dL (33.0-37.0); Mean Corpuscular Hgb 29.3 pg (27.0-31.0); Mean Corpuscular Volume 88.4 fL (80.0-94.0); Mean Platelet Volume 9.6 fL (7.4-10.4); Nucleated Red Blood Cells % 0 % (-); Platelet Count 404 10^3/uL (130-400); Red Blood Cell Count 3.79 10^6/uL (4.70-6.10); Red Cell Dist. Width 12.7 % (11.5-14.5); White Blood Cell Count 13.6 10^3/uL (4.8-10.8)
[2024-04-07 07:07] LABS: Blood Urea Nitrogen 10 mg/dl (9-20); Calcium 8.3 mg/dl (8.4-10.2); Carbon Dioxide 24 mmol/L (22-30); Chloride 101 mmol/L (98-107); Estimated Creatinine Clearance > 125 ml/min; Glucose 105 mg/dl (70-99); Potassium 4.1 mmol/L (3.5-5.1); Sodium 134 mmol/L (135-145); eGFR > 60.00
[2024-04-07 07:40] VITALS: BP 137/90
[2024-04-07] MEDS: NICODERM TRANSDERMAL 14 MG TRANSDERM (07:55)
[2024-04-07] MEDS: OMNIPAQUE 50 ML PO (07:55)
[2024-04-07] MEDS: COZAAR 50 MG PO (08:06)
--- NOTE | 2024-04-07 08:22 | W.PN.CRS1 ---
Addendum entered and electronically signed by Jerrod Lemons MD 04/07/24 08:40:
Patient seen and examined. Agree with assessment plan as documented below.
No major complaints. Feels improved. Denies worsening abdominal pain. No nausea or vomiting. No fevers. Ambulating. Voiding.
Gen: NAD
Abd: soft, mild tenderness, mild distension, non-peritoneal, midline with some blanching erythema - donavan removed and flushed with saline, ostomy viable, stool and flatus in bag
Patient is a 39-year-old male with a history of sarcoidosis and tobacco abuse presents to the ER for 3 days of abdominal pain and fevers. Started on IV antibiotics and white count is 12.[address] abdomen pelvis shows acute diverticulitis of the
sigmoid.
WBC 13.6. Afebrile, vital signs normal.
POD#6 sigmoid resection and end colostomy (Helen's procedure)
1. Given increase in WBC, will order CT A/P.
2. Wound RN for stoma teaching.
3. OOB as tolerated.
4. Lovenox for DVT prophylaxis, TEDS and SCDS in place.
5. OR pathology pending.
6. Continue IV antibiotics/antifungal - micafungin and Zosyn. Appreciate ID.
7. Pain control: Dilaudid IV PRN, Tylenol/Toradol standing.
8. Appreciate hospitalist.
9. Tolerating a low residue diet. Will keep NPO for now until CT performed.
Original Note:
Today's Communication / Plan
-
CT A/P
Assessment/Plan
-
Assessment: 39-year-old male with a history of sarcoidosis and tobacco abuse presents to the ER for 3 days of abdominal pain and fevers. Started on IV antibiotics and white count is 12.[address] abdomen pelvis shows acute diverticulitis of the
sigmoid.
WBC 13.6. Afebrile, vital signs normal.
POD#6 sigmoid resection and end colostomy (Helen's procedure)
1. Given increase in WBC, will order CT A/P.
2. Wound RN for stoma teaching.
3. OOB as tolerated.
4. Lovenox for DVT prophylaxis, TEDS and SCDS in place.
5. OR pathology pending.
6. Continue IV antibiotics/antifungal - micafungin and Zosyn. Appreciate ID.
7. Pain control: Dilaudid IV PRN, Tylenol/Toradol standing.
8. Appreciate hospitalist.
9. Tolerating a low residue diet. Will keep NPO for now until CT performed.
Subjective Data
Procedure
04/01/2024- Exploratory laparotomy, sigmoid resection and end colostomy (Helen's procedure)
Subjective Data
Date of Service: April 07, 2024
Patient states he feels a little bit better today. He denies nausea or vomiting. He is tolerating a diet. His stoma has output.
Objective Data
-
Vital Signs
Temp Pulse Resp BP Pulse Ox
98.7 F 96 18 137/90 96
04/07/24 07:40 04/07/24 08:06 04/07/24 07:40 04/07/24 08:06 04/07/24 07:40
Intake & Output
04/06/24 04/07/24 04/08/24
06:59 06:59 06:59
Intake Total 2440 / 2440 1595 / 1595
Output Total 450 / 450 450 / 450
Balance 1989 / 1989 1145 / 1145
Intake:
Oral fluids 2440 / 2440 1340 / 1340
IV fluids (Total) 40 / 40
IV piggybacks 215 / 215
Output:
Liquid stool amount 450 / 450 450 / 450
Colostomy 450 / 450 450 / 450
Other:
Number of approximated SMALL 7
amounts of urine
Number of approximated MODERATE 5 5
amounts of urine
Lab Results
04/07/24 06:23
04/07/24 06:23
Physical Exam
-
General: No Acute Distress and AOx3
Abdomen: Soft, Non Distended, Non Tender and Other (stoma warm and with function)
Skin: Warm and Dry
Wound: Dressing Changed (mild erythema around lower portion of wound where donavan are placed, donavan removed, cleaned with saline and dressing replaced)
[2024-04-07] MEDS: NSS (PRESERVATIVE FREE) 0.5 ML IV (08:55)
[2024-04-07] MEDS: ATIVAN 1 MG IV (08:56)
--- NOTE | 2024-04-07 08:59 | W.PN.HOSP.TC ---
Today's Communication/Plan
-
repeat CT today with rising WBC; d/w CRS
continue anti-microbials as per ID
Assessment / Plan
Assessment / Plan
Assessment:
Acute Perforated sigmoid diverticulitis s/p Exploratory laparotomy, sigmoid resection and end colostomy (Helen's procedure) by Dr Martínez 04/01
Evolving sepsis
- continue Zosyn
- continue Micafungin
- follow cultures, follow ID recs
- with rising WBC, repeat CT today.
- s/p NGT removed 04/03
- diet: LRD but NPO currently for repeat CT
- Ostomy service following
- CRS following
Hyponatremia
UBALDO
- resolved
Essential HTN
- continue Losartan
- prn Hydralazine
Daily ETOH use: 3-4 glasses [place] daily
- He does not have signs of withdrawal. Passed time for showing withdrawal, ok to be off off MSAS protocol.
Anxiety
- continue prn Ativan
History of tobacco use, nicotine patch
Obesity BMI 35
DVT ppx: Lovenox + SCDs
Code: Full
Anticipated Discharge: > 48 hours
Subjective/Interval History
-
Date of Service: April 07, 2024
tolerating LRD
WBC higher today, no fevers, for CT today
Objective Data
-
Labs:
Laboratory Results
04/07/24
06:23
WBC 13.6 H
Hgb 11.1 L
Hct 33.5 L
Plt Count 404 H
Sodium 134 L
Potassium 4.1
Chloride 101
Carbon Dioxide 24
BUN 10
Creatinine 1.0
Glucose 105 H
Calcium 8.3 L
Vital Signs:
Vital Signs
Temp Pulse Resp BP Pulse Ox
98.7 F 96 18 137/90 96
04/07/24 07:40 04/07/24 08:06 04/07/24 07:40 04/07/24 08:06 04/07/24 07:40
I&O
04/06/24 04/07/24 04/08/24
06:59 06:59 06:59
Intake Total 2440 / 2440 1595 / 1595
Output Total 450 / 450 450 / 450
Balance 1989 / 1989 1145 / 1145
Physical Exam
-
General: No Apparent Distress
HEENT: Normocephalic and Atraumatic
Respiratory: Negative Wheezes
Cardiac: Regular Rhythm and S1/S2
GI: Soft
Musculoskeletal: No Edema
Psych: Calm
Data Reviewed
-
Total Time Spent with Patient (in minutes): 44
Labs: Labs Reviewed by me
--- NOTE | 2024-04-07 10:11 | VNURNOTE ---
Home Health Liaison spoke with patient's Barbara over the phone to discuss [facility] nurse/therapy, visits, schedule and homebound status. Patient was sleeping. Spouse understands the plan and is agreeable. She understands that visits at home will
be 2-3 x per week to assess and teach ostomy management. Spouse is aware that [facility] will contact them for start of care in 1-2 days after discharge from . [facility] referral already completed in [facility].
[2024-04-07 11:40] VITALS: BP 150/92
[2024-04-07] MEDS: TORADOL 15 MG IV ×2 (12:40→20:31)
[2024-04-07] MEDS: MYCAMINE 115 MG IV (12:58)
--- NOTE | 2024-04-07 15:02 | WOUNDNOTE ---
WO RN Note: Patient and reinstructed colostomy appliance change using [place] wafer # [id number], [place] seal and [place] pouch # [id number]. Instructed how to apply light dusting of miconazole powder followed by no sting barrier wipe to peristomal
red skin as needed. Patient assisted with appliance change and emptying pouch. VN is planned. Stoma almost flush and pink. Mild red skin noted next to lower abdominal incisional dressing. Patient stated surgeon group changed his midline abdominal
dressing today. Dr. Good was in during visit. said her with being getting a drain for a collection put in by IR tomorrow. Next appliance change due Saturday.
--- NOTE | 2024-04-07 15:09 | W.PN.ID1 ---
Date of Service
Date of Service: April 07, 2024
Today's Communication
Continue antibiotics.
Assessment / Plan
Sigmoid diverticulitis with perforation and abscess
Leukocytosis
Fungal peritonitis
Fever
GERD
HTN
Sarcoidosis
Recommendations:
Continue with Zosyn and micafungin for the present.
Repeat imaging revealed the presence of several fluid collections.
- IR has been consulted for aspiration/drainage.
- Would send repeat cultures if fluid is able to be obtained.
Monitor white count temperature curve.
����������������������������������������������������������
Chief Complaint
-: Other (Fungal peritonitis)
Subjective / Review of Systems
Patient seen and examined. Reports overall feeling well.
Review of Systems: Fever
Vital Signs / Physical Exam
Vital Signs
Vital Signs
Temp Pulse Resp BP Pulse Ox
98.1 F 102 18 150/92 95
04/07/24 11:40 04/07/24 11:40 04/07/24 11:40 04/07/24 11:40 04/07/24 11:40
Physical Exam
Constitutional: No Acute Distress, Comfortable and Non-toxic
Eyes: Sclera Anicteric
Cardiovascular: S1/S2; Negative S3/S4
Pulmonary: Clear and Non Labored
Gastrointestinal: Non Distended and Other (Ostomy in place.)
Extremities: Negative Cyanosis or Erythema
Skin: Negative Rash or Jaundice
Neurological: Awake and Alert
Psychological: Calm
Objective Data
Lab Data
Lab Results
04/07/24 06:23
04/07/24 06:23
PT 15.7 Sec (11.4-14.6) H 03/30/24 06:07
INR 1.27 03/30/24 06:07
APTT 36.2 Sec (23.4-35.0) H 03/30/24 06:07
Estimated Creat Clear > 125 ml/min 04/07/24 06:23
Total Bilirubin 1.5 mg/dl (0.2-1.3) H 03/29/24 19:41
GGT 167 U/L (15-73) H 03/30/24 06:07
AST 32 U/L (17-59) 03/29/24 19:41
ALT 40 U/L (0-50) 03/29/24 19:41
Alkaline Phosphatase 88 U/L (38-126) 03/29/24 19:41
Most recent labs reviewed.
Micro Results:
04/06/24 09:57 MRSA Screen - Final
Nose No Methicillin Resistant Staphylococcus aureus isolated.
04/01/24 09:00 Wound Culture - Final
Abdomen Yeast
Gram Stain - Final
04/01/24 09:00 Anaerobic Culture - Final
Abdomen
03/30/24 06:07 Blood Culture - Final
Blood/Venous No Growth - Final Report
03/30/24 06:43 Blood Culture - Final
Blood/Venous No Growth - Final Report
03/30/24 06:11 MRSA Screen - Final
Nose No Methicillin Resistant Staphylococcus aureus isolated.
Imaging:
CT abdomen/pelvis with contrast: Status post sigmoid colectomy with colostomy and Diggs's pouch. Fluid collections within the left lateral lower abdomen and within the pelvis more inferiorly, with measurements given above. There may be
a thin connection between these fluid collections in the left upper pelvis. Superimposed infection of these collections cannot be excluded by imaging.
04/01/2024 CT abdomen/pelvis with contrast: Progressed findings suggesting bowel perforation due to acute diverticulitis. There is moderate pericolic stranding around the proximal sigmoid colon, with scattered diverticula consistent with active
diverticulitis. There is increased extraluminal air adjacent to the diseased sigmoid colon measuring 1.7 x 1.0 cm and has suggestion of thin developing wall and a small air-fluid level.
[2024-04-07 15:26] VITALS: BP 134/102
[2024-04-07] MEDS: TYLENOL 650 MG PO (17:17)
[2024-04-07 19:32] VITALS: BP 146/86
[2024-04-07 22:56] VITALS: BP 135/94
[2024-04-08] VITALS (14 sets, daily range): BP systolic 88–176; BP diastolic 74–119
[2024-04-08] MEDS: DILAUDID 0.5 MG IV ×5 (02:55→21:35)
[2024-04-08] MEDS: TYLENOL 650 MG PO ×2 (02:56→17:28)
[2024-04-08 05:31] LABS: % Basophils 0.8 % (0-2); % Eosinophils 3.6 % (0-6); % Immature Granulocytes 5.3 % (0-0.5); % Lymphocytes 10.9 % (20.5-51.1); % Monocytes 8.2 % (1.7-9.3); % Neutrophils 71.2 % (42.2-75.2); Absolute Basophils 0.1 10^3/uL (0-0.2); Absolute Eosinophils 0.5 10^3/uL (0-0.7); Absolute Immature Granulocytes 0.8 10^3/uL (0-0.05); Absolute Lymphocytes 1.6 10^3/uL (1.2-3.4); Absolute Monocytes 1.2 10^3/uL (0.1-0.6); Absolute Neutrophils 10.1 10^3/uL (1.4-6.5); Hematocrit 32.9 % (39.0-52.0); Hemoglobin 11.1 g/dL (13.0-18.0); Mean Corp Hgb Conc. 33.7 g/dL (33.0-37.0); Mean Corpuscular Hgb 29.4 pg (27.0-31.0); Mean Corpuscular Volume 87.3 fL (80.0-94.0); Mean Platelet Volume 9.7 fL (7.4-10.4); Nucleated Red Blood Cells % 0 % (-); Platelet Count 480 10^3/uL (130-400); Red Blood Cell Count 3.77 10^6/uL (4.70-6.10); White Blood Cell Count 14.2 10^3/uL (4.8-10.8)
[2024-04-08] MEDS: ZOSYN 50 IV ×3 (05:45→17:27)
[2024-04-08 05:49] LABS: Blood Urea Nitrogen 10 mg/dl (9-20); Calcium 8.6 mg/dl (8.4-10.2); Carbon Dioxide 24 mmol/L (22-30); Chloride 103 mmol/L (98-107); Estimated Creatinine Clearance > 125 ml/min; Glucose 103 mg/dl (70-99); Potassium 4.2 mmol/L (3.5-5.1); Sodium 136 mmol/L (135-145); eGFR > 60.00
[2024-04-08 06:05] LABS: Red Cell Dist. Width 12.9 % (11.5-14.5)
--- NOTE | 2024-04-08 08:01 | W.PN.CRS1 ---
Addendum entered and electronically signed by Sg Martínez MD 04/08/24 10:28:
Pathology c/w diverticulitis. No cancer present.
Original Note:
Today's Communication / Plan
-
IR for drain
Low residue diet post IR
Assessment/Plan
-
Assessment: 39-year-old male with a history of sarcoidosis and tobacco abuse presents to the ER for 3 days of abdominal pain and fevers. Started on IV antibiotics and white count is 12.[address] abdomen pelvis shows acute diverticulitis of the
sigmoid.
WBC 14.2. Tmax 100.4 this morning
POD# 7 sigmoid resection and end colostomy (Helen's procedure)
1. N.p.o. today for IR drainage of abdominal fluid collection.
2. Wound RN for stoma teaching.
3. OOB as tolerated.
4. Lovenox for DVT prophylaxis, TEDS and SCDS in place.
5. OR pathology pending.
6. Continue IV antibiotics/antifungal - micafungin and Zosyn. Appreciate ID.
7. Pain control: Dilaudid IV PRN, Tylenol/Toradol standing.
8. Appreciate hospitalist.
9. Advance diet to low residue post IR.
10. Daily dressing changes.
Subjective Data
Procedure
04/01/2024- Exploratory laparotomy, sigmoid resection and end colostomy (Helen's procedure)
Subjective Data
Date of Service: April 08, 2024
Patient states he feels about the same as yesterday. He still he has no nausea or vomiting. His stoma is producing.
Objective Data
-
Vital Signs
Temp Pulse Resp BP Pulse Ox
98.9 F 97 20 133/74 100
04/08/24 06:00 04/08/24 03:29 04/08/24 03:29 04/08/24 03:55 04/08/24 03:29
Intake & Output
04/07/24 04/08/24 04/09/24
06:59 06:59 06:59
Intake Total 1595 / 1595 900 / 900
Output Total 450 / 450 635 / 635
Balance 1145 / 1145 265 / 265
Intake:
Oral fluids 1340 / 1340 900 / 900
IV fluids (Total) 40 / 40
IV piggybacks 215 / 215
Output:
Liquid stool amount 450 / 450 635 / 635
Colostomy 450 / 450 635 / 635
Other:
Number of approximated MODERATE 5 3
amounts of urine
Lab Results
04/08/24 05:04
04/08/24 05:04
Physical Exam
-
General: No Acute Distress and AOx3
Abdomen: Soft, Non Distended, Non Tender and Other (Stoma warm and pink with function.)
Wound: Dressing Changed
Incision: Skin Erythema (Mild around the lower portion of incision, improved)
[2024-04-08] MEDS: NICODERM TRANSDERMAL 14 MG TRANSDERM (08:17)
[2024-04-08] MEDS: COZAAR 50 MG PO (08:18)
[2024-04-08] MEDS: TORADOL 15 MG IV ×2 (08:24→20:10)
--- NOTE | 2024-04-08 10:47 | W.PN.ID1 ---
Date of Service
Date of Service: April 08, 2024
Today's Communication
Continue antibiotics.
Assessment / Plan
Sigmoid diverticulitis with perforation and abscess
Leukocytosis
Fungal peritonitis
Fever
GERD
HTN
Sarcoidosis
Recommendations:
Continue with Zosyn and micafungin for the present.
Repeat imaging revealed the presence of several fluid collections.
- IR has been consulted for aspiration/drainage.
- Would send repeat cultures if fluid is able to be obtained.
Monitor white count temperature curve.
����������������������������������������������������������
Chief Complaint
-: Other (Fungal peritonitis)
Subjective / Review of Systems
Review of Systems: No Fever and No Chills
Vital Signs / Physical Exam
Vital Signs
Vital Signs
Temp Pulse Resp BP Pulse Ox
98.2 F 83 18 161/98 98
04/08/24 07:00 04/08/24 08:18 04/08/24 07:00 04/08/24 08:18 04/08/24 07:00
Physical Exam
Constitutional: No Acute Distress, Comfortable and Non-toxic
Eyes: Sclera Anicteric
Cardiovascular: S1/S2; Negative S3/S4
Pulmonary: Clear and Non Labored
Gastrointestinal: Non Distended, Normal Bowel Sounds, No Rebound, No Guarding and Other (Ostomy in place.)
Extremities: Negative Cyanosis or Erythema
Skin: Negative Rash or Jaundice
Wound: Other (Lower abdominal wound dressed. Upper abdominal wound with edy in place.)
Neurological: Awake and Alert
Psychological: Calm
Objective Data
Lab Data
Lab Results
04/08/24 05:04
04/08/24 05:04
PT 15.7 Sec (11.4-14.6) H 03/30/24 06:07
INR 1.27 03/30/24 06:07
APTT 36.2 Sec (23.4-35.0) H 03/30/24 06:07
Estimated Creat Clear > 125 ml/min 04/08/24 05:04
Total Bilirubin 1.5 mg/dl (0.2-1.3) H 03/29/24 19:41
GGT 167 U/L (15-73) H 03/30/24 06:07
AST 32 U/L (17-59) 03/29/24 19:41
ALT 40 U/L (0-50) 03/29/24 19:41
Alkaline Phosphatase 88 U/L (38-126) 03/29/24 19:41
Most recent labs reviewed.
Micro Results:
04/06/24 09:57 MRSA Screen - Final
Nose No Methicillin Resistant Staphylococcus aureus isolated.
04/01/24 09:00 Wound Culture - Final
Abdomen Yeast
Gram Stain - Final
04/01/24 09:00 Anaerobic Culture - Final
Abdomen
03/30/24 06:07 Blood Culture - Final
Blood/Venous No Growth - Final Report
03/30/24 06:43 Blood Culture - Final
Blood/Venous No Growth - Final Report
03/30/24 06:11 MRSA Screen - Final
Nose No Methicillin Resistant Staphylococcus aureus isolated.
Imaging:
CT abdomen/pelvis with contrast: Status post sigmoid colectomy with colostomy and Diggs's pouch. Fluid collections within the left lateral lower abdomen and within the pelvis more inferiorly, with measurements given above. There may be
a thin connection between these fluid collections in the left upper pelvis. Superimposed infection of these collections cannot be excluded by imaging.
04/01/2024 CT abdomen/pelvis with contrast: Progressed findings suggesting bowel perforation due to acute diverticulitis. There is moderate pericolic stranding around the proximal sigmoid colon, with scattered diverticula consistent with active
diverticulitis. There is increased extraluminal air adjacent to the diseased sigmoid colon measuring 1.7 x 1.0 cm and has suggestion of thin developing wall and a small air-fluid level.
Care Review
Plan reviewed with: Physician (CRS)
--- NOTE | 2024-04-08 11:13 | W.PN.HOSP.TC ---
Today's Communication/Plan
-
IRAD drainage today then resume diet
follow culture from drainage
night O2 study ordered
Assessment / Plan
Assessment / Plan
Assessment:
Acute Perforated sigmoid diverticulitis s/p Exploratory laparotomy, sigmoid resection and end colostomy (Helen's procedure) by Dr Martínez 04/01
Evolving sepsis
- continue Zosyn
- continue Micafungin
- follow cultures, follow ID recs
- s/p NGT removed 04/03
- diet: LRD
- Ostomy service following
- CRS following
- repeat CT 04/07: Fluid collections within the left lateral lower abdomen and within the pelvis more inferiorly, with measurements given above. There may be a thin connection between these fluid collections in the left upper pelvis. Superimposed
infection of these collections cannot be excluded by imaging.
- for IRAD drainage today
Hyponatremia
UBALDO
- resolved
Essential HTN
- continue Losartan
- prn Hydralazine
Daily ETOH use: 3-4 glasses [place] daily
- He does not have signs of withdrawal. Passed time for showing withdrawal, ok to be off off MSAS protocol.
Anxiety
- continue prn Ativan
History of tobacco use, nicotine patch
Obesity BMI 35
Nocturnal hypoxia
- nocturnal O2 study ordered
- reported told outpatient he has [facility] but has not pursued sleep study
DVT ppx: Lovenox + SCDs
Code: Full
Anticipated Discharge: > 48 hours
Subjective/Interval History
-
Date of Service: April 08, 2024
pain stable
no fever, WBC 14 now
for IR drainage today
Objective Data
-
Labs:
Laboratory Results
04/08/24
05:04
WBC 14.2 H
Hgb 11.1 L
Hct 32.9 L
Plt Count 480 H
Sodium 136
Potassium 4.2
Chloride 103
Carbon Dioxide 24
BUN 10
Creatinine 1.0
Glucose 103 H
Calcium 8.6
Vital Signs:
Vital Signs
Temp Pulse Resp BP Pulse Ox
98.2 F 83 18 161/98 98
04/08/24 07:00 04/08/24 08:18 04/08/24 07:00 04/08/24 08:18 04/08/24 07:00
I&O
04/07/24 04/08/24 04/09/24
06:59 06:59 06:59
Intake Total 1595 / 1595 900 / 900
Output Total 450 / 450 635 / 635
Balance 1145 / 1145 265 / 265
Physical Exam
-
General: No Apparent Distress
HEENT: Normocephalic and Atraumatic
Respiratory: Negative Wheezes or Rales
Cardiac: Regular Rhythm and S1/S2
GI: Ostomy
Neuro: AO x 3
Psych: Calm
Data Reviewed
-
Total Time Spent with Patient (in minutes): 42
Labs: Labs Reviewed by me
--- NOTE | 2024-04-08 12:00 | CM ---
CM reviewed pt with Dr Uribe- no set ADC at this time
Plan for IR drain placement and nocturnal O2 study this evening
Bedside update to pt and spouse- aware CM to arrange for nocturnal O2 if qualifies
Plan remains home with [facility] and new ostomy at this time
CM will continue to follow for dc planning
Discharge Disposition- home with [facility] and new ostomy, watch for nocturnal O2 needs
[2024-04-08] MEDS: MYCAMINE 115 MG IV (13:06)
[2024-04-08] MEDS: ATIVAN 1 MG IV (15:05)
--- NOTE | 2024-04-08 16:29 | WOUNDNOTE ---
WOC RN note: t/c Spoke with Ceci from [facility] who confirmed patient's [employer] ostomy starter kit was delivered.
--- NOTE | 2024-04-08 17:33 | PTCARENOTE ---
Patient received back from IR. LANDON drain site CDI. Patient c/o of pain. Dilaudid prn administered per order. at bedside. Call poon within reach.
[2024-04-09] MEDS: ZOSYN 50 IV ×5 (00:11→23:47)
[2024-04-09] MEDS: DILAUDID 0.5 MG IV ×2 (01:35→05:39)
[2024-04-09] MEDS: ANESTHETIC LOZENGE 1 LOZENGE PO (01:41)
[2024-04-09 03:43] VITALS: BP 128/80
[2024-04-09] MEDS: ATIVAN 1 MG IV (05:51)
[2024-04-09] MEDS: NSS (PRESERVATIVE FREE) 0.5 ML IV (05:51)
[2024-04-09 05:53] LABS: % Basophils 0.9 % (0-2); % Eosinophils 3.6 % (0-6); % Immature Granulocytes 3.9 % (0-0.5); % Lymphocytes 14.9 % (20.5-51.1); % Monocytes 8.6 % (1.7-9.3); % Neutrophils 68.1 % (42.2-75.2); Absolute Basophils 0.1 10^3/uL (0-0.2); Absolute Eosinophils 0.5 10^3/uL (0-0.7); Absolute Immature Granulocytes 0.5 10^3/uL (0-0.05); Absolute Lymphocytes 1.9 10^3/uL (1.2-3.4); Absolute Monocytes 1.1 10^3/uL (0.1-0.6); Absolute Neutrophils 8.8 10^3/uL (1.4-6.5); Hemoglobin 11.5 g/dL (13.0-18.0); Mean Corp Hgb Conc. 32.9 g/dL (33.0-37.0); Mean Corpuscular Hgb 29.5 pg (27.0-31.0); Mean Corpuscular Volume 89.7 fL (80.0-94.0); Mean Platelet Volume 9.6 fL (7.4-10.4); Nucleated Red Blood Cells % 0 % (-); Platelet Count 510 10^3/uL (130-400); Red Cell Dist. Width 12.8 % (11.5-14.5); White Blood Cell Count 12.9 10^3/uL (4.8-10.8)
[2024-04-09 06:14] LABS: Blood Urea Nitrogen 11 mg/dl (9-20); Calcium 8.7 mg/dl (8.4-10.2); Carbon Dioxide 28 mmol/L (22-30); Chloride 100 mmol/L (98-107); Estimated Creatinine Clearance > 125 ml/min; Glucose 110 mg/dl (70-99); Potassium 4.6 mmol/L (3.5-5.1); Sodium 136 mmol/L (135-145); eGFR > 60.00
[2024-04-09 08:26] VITALS: BP 126/83
--- NOTE | 2024-04-09 08:39 | W.PN.CRS1 ---
Today's Communication / Plan
-
continue low residue
abx
IR drain in place
switch dilaudid to roxicodone prn
Assessment/Plan
-
Assessment: 39-year-old male with a history of sarcoidosis and tobacco abuse presents to the ER for 3 days of abdominal pain and fevers. Started on IV antibiotics and white count is 12.[address] abdomen pelvis shows acute diverticulitis of the
sigmoid.
6/5 - L abdominal drain placement by IR
WBC 12.9. vitals normal.
POD# 8 sigmoid resection and end colostomy (Helen's procedure)
1. Continue low residue diet.
2. Wound RN for stoma teaching.
3. OOB as tolerated.
4. Lovenox for DVT prophylaxis, TEDS and SCDS in place.
5. OR pathology pending.
6. Continue IV antibiotics/antifungal - micafungin and Zosyn. Appreciate ID. Cultures from IR pending.
7. Pain control: change Dilaudid IV PRN to Roxicodone PRN, Tylenol/Toradol standing.
8. Appreciate hospitalist.
9. Daily dressing changes.
10. Anticipate d/c in a few days. VN ordered for drain care at home.
Subjective Data
Procedure
04/01/2024- Exploratory laparotomy, sigmoid resection and end colostomy (Helen's procedure)
Subjective Data
Date of Service: April 09, 2024
Patient states he feels 'okay'. He has no nausea or vomiting. He is tolerating a diet. He has stoma functioning and is urinating without difficulty.
Objective Data
-
Vital Signs
Temp Pulse Resp BP Pulse Ox
98.0 F 98 18 126/83 100
04/09/24 08:26 04/09/24 08:26 04/09/24 08:26 04/09/24 08:26 04/09/24 08:26
Intake & Output
04/08/24 04/09/24 04/10/24
06:59 06:59 06:59
Intake Total 900 / 900 530 / 530
Output Total 635 / 635 655 / 655
Balance 265 / 265 -125 / -125
Intake:
Oral fluids 900 / 900 480 / 480
IV piggybacks 50 / 50
Output:
Liquid stool amount 635 / 635 325 / 325
Colostomy 635 / 635 325 / 325
Drain Output (Total) 30
Left Lower Abdomen Placed in IR
Urine, Voided 300 / 300
Other:
Number of approximated MODERATE 3 1
amounts of urine
Number of approximated LARGE 1
amounts of urine
Lab Results
04/09/24 05:34
04/09/24 05:34
Physical Exam
-
General: No Acute Distress and AOx3
Abdomen: Soft, Non Distended, Non Tender and Other (ostomy warm and pink with function, LANDON drain red serous)
Wound: Dressing Changed and Other (q-tips placed into room (by Dr. Martínez) and some drainage out of lower aspect of incision)
[2024-04-09] MEDS: NICODERM TRANSDERMAL 14 MG TRANSDERM (08:45)
[2024-04-09] MEDS: COZAAR 50 MG PO (08:47)
[2024-04-09] MEDS: TORADOL 15 MG IV ×3 (08:53→23:48)
--- NOTE | 2024-04-09 11:26 | W.PN.HOSP.TC ---
Today's Communication/Plan
-
continue drain care, IV Abx pending cultures and post-op care
setup home O2 for night desats
Assessment / Plan
Assessment / Plan
Assessment:
Acute Perforated sigmoid diverticulitis s/p Exploratory laparotomy, sigmoid resection and end colostomy (Helen's procedure) by Dr Martínez 04/01
Evolving sepsis
- path per Dr. Martínez consistent with diverticulitis, no cancer
- continue Zosyn
- continue Micafungin
- s/p NGT removed 04/03
- diet: LRD and tolerating
- Ostomy service following
- CRS following
- ID following
- repeat CT 04/07: Fluid collections within the left lateral lower abdomen and within the pelvis more inferiorly, with measurements given above. There may be a thin connection between these fluid collections in the left upper pelvis. Superimposed
infection of these collections cannot be excluded by imaging.
- s/p IRAD drain placement 04/08, follow drain culture
Nocturnal desaturations/hypoxia
- likely LEONOR - needs OP Sleep study
- setup home night O2 with CM
- Patient is in need of oxygen at 2 liters/minute via nasal cannula continuously at night due to pulse oximetry of 61% on room air at rest during sleep. Oxygen will help to improve hypoxemia. Patient is mobile within the home. DuoNeb therapy has
been tried and is ineffective in treating hypoxemia related symptoms. Oxygen is needed to improve symptoms.
Hyponatremia
UBALDO
- resolved
Essential HTN
- continue Losartan
- prn Hydralazine
Daily ETOH use: 3-4 glasses [place] daily
- He does not have signs of withdrawal. Passed time for showing withdrawal, ok to be off off MSAS protocol.
Anxiety
- continue prn Ativan
History of tobacco use, nicotine patch
Obesity BMI 35
DVT ppx: Lovenox + SCDs
Code: Full
Anticipated Discharge: > 48 hours
Subjective/Interval History
-
Date of Service: April 09, 2024
feels ok, no new complaints
s/p IRAD drainage yesterday
Objective Data
-
Labs:
Laboratory Results
04/09/24
05:34
WBC 12.9 H
Hgb 11.5 L
Hct 35.0 L
Plt Count 510 H
Sodium 136
Potassium 4.6
Chloride 100
Carbon Dioxide 28
BUN 11
Creatinine 1.0
Glucose 110 H
Calcium 8.7
Vital Signs:
Vital Signs
Temp Pulse Resp BP Pulse Ox
98.0 F 98 18 126/83 94
04/09/24 08:26 04/09/24 08:47 04/09/24 08:26 04/09/24 08:47 04/09/24 10:43
I&O
04/08/24 04/09/24 04/10/24
06:59 06:59 06:59
Intake Total 900 / 900 530 / 530 5 / 5
Output Total 635 / 635 655 / 655
Balance 265 / 265 -125 / -125 5 / 5
Physical Exam
-
General: No Apparent Distress
HEENT: Normocephalic and Atraumatic
Respiratory: Negative Wheezes
Cardiac: Regular Rhythm
GI: Soft and Ostomy
Neuro: AO x 3
Psych: Calm
Data Reviewed
-
Total Time Spent with Patient (in minutes): 43
Labs: Labs Reviewed by me
[2024-04-09 12:03] VITALS: BP 161/109
[2024-04-09] MEDS: ROXICODONE 10 MG PO ×3 (12:14→21:05)
--- NOTE | 2024-04-09 13:02 | W.PN.ID1 ---
Date of Service
Date of Service: April 09, 2024
Today's Communication
Continue with Zosyn (d#11) and micafungin (d#7)
Assessment / Plan
Sigmoid diverticulitis with perforation and abscess
Leukocytosis
Fungal peritonitis
Fever
GERD
HTN
Sarcoidosis
Recommendations:
Continue with Zosyn (d#11) and micafungin (d#7)
Await further culture data from fluid obtained 04/08/24
Monitor white count temperature curve.
����������������������������������������������������������
Chief Complaint
-: Other (Fungal peritonitis)
Subjective / Review of Systems
Patient seen and examined. Underwent IR drainage of fluid collection yesterday.
Review of Systems: No Fever and No Chills
Vital Signs / Physical Exam
Vital Signs
Vital Signs
Temp Pulse Resp BP Pulse Ox
98.4 F 94 18 161/109 96
04/09/24 12:03 04/09/24 12:03 04/09/24 12:03 04/09/24 12:03 04/09/24 12:03
Physical Exam
Constitutional: No Acute Distress, Comfortable and Non-toxic
Eyes: Sclera Anicteric
Cardiovascular: S1/S2; Negative S3/S4
Pulmonary: Clear and Non Labored; Negative Wheezes or Rales
Gastrointestinal: Non Distended, Normal Bowel Sounds, No Rebound, No Guarding and Other (Ostomy in place. Left LANDON with serous fluid.)
Extremities: Negative Cyanosis or Erythema
Skin: Negative Rash or Jaundice
Wound: Other (Lower abdominal wound dressed. Upper abdominal wound with edy in place.)
Neurological: Awake and Alert
Psychological: Calm
Objective Data
Lab Data
Lab Results
04/09/24 05:34
04/09/24 05:34
PT 15.7 Sec (11.4-14.6) H 03/30/24 06:07
INR 1.27 03/30/24 06:07
APTT 36.2 Sec (23.4-35.0) H 03/30/24 06:07
Estimated Creat Clear > 125 ml/min 04/09/24 05:34
Total Bilirubin 1.5 mg/dl (0.2-1.3) H 03/29/24 19:41
GGT 167 U/L (15-73) H 03/30/24 06:07
AST 32 U/L (17-59) 03/29/24 19:41
ALT 40 U/L (0-50) 03/29/24 19:41
Alkaline Phosphatase 88 U/L (38-126) 03/29/24 19:41
Most recent labs reviewed.
Micro Results:
04/08/24 16:30 Wound Culture - Preliminary
Abdomen No growth
Gram Stain - Preliminary
04/06/24 09:57 MRSA Screen - Final
Nose No Methicillin Resistant Staphylococcus aureus isolated.
04/01/24 09:00 Wound Culture - Final
Abdomen Yeast
Gram Stain - Final
04/01/24 09:00 Anaerobic Culture - Final
Abdomen
03/30/24 06:07 Blood Culture - Final
Blood/Venous No Growth - Final Report
03/30/24 06:43 Blood Culture - Final
Blood/Venous No Growth - Final Report
03/30/24 06:11 MRSA Screen - Final
Nose No Methicillin Resistant Staphylococcus aureus isolated.
Imaging:
CT abdomen/pelvis with contrast: Status post sigmoid colectomy with colostomy and Diggs's pouch. Fluid collections within the left lateral lower abdomen and within the pelvis more inferiorly, with measurements given above. There may be
a thin connection between these fluid collections in the left upper pelvis. Superimposed infection of these collections cannot be excluded by imaging.
04/01/2024 CT abdomen/pelvis with contrast: Progressed findings suggesting bowel perforation due to acute diverticulitis. There is moderate pericolic stranding around the proximal sigmoid colon, with scattered diverticula consistent with active
diverticulitis. There is increased extraluminal air adjacent to the diseased sigmoid colon measuring 1.7 x 1.0 cm and has suggestion of thin developing wall and a small air-fluid level.
--- NOTE | 2024-04-09 13:58 | PTOTSP ---
Patient observed ambulating in the hallway independently with his . Spoke with the patient, who denied continued therapy needs. Encouraged continued ambulation while here, which he noted he is doing at least 3x/day. Patient is aware our services
are available if needed. Will sign off at this time.
--- NOTE | 2024-04-09 14:13 | CM ---
met with patient at bedside.patient is sp ir drain placment,ostomy service following.tolerating low residue diet,has nicotine patch.patient qualifies for night o2 at 2 lites [place] continuously.cotkayla herron from [facility] [employer].will fax
clinicals.Plan:dhvn when dc.
[2024-04-09] MEDS: MYCAMINE 115 MG IV (14:58)
[2024-04-09 15:55] VITALS: BP 141/84
[2024-04-09 19:38] VITALS: BP 134/87
[2024-04-09 23:39] VITALS: BP 128/90
[2024-04-10] MEDS: ROXICODONE 10 MG PO ×2 (01:05→09:23)
[2024-04-10] MEDS: ANESTHETIC LOZENGE 1 LOZENGE PO (01:08)
[2024-04-10 03:48] VITALS: BP 125/80
[2024-04-10] MEDS: ZOSYN 50 IV (05:17)
[2024-04-10] MEDS: ROXICODONE 5 MG PO (05:17)
[2024-04-10] MEDS: TORADOL 15 MG IV (06:09)
[2024-04-10 07:34] LABS: % Basophils 1.2 % (0-2); % Eosinophils 3.8 % (0-6); % Immature Granulocytes 4.3 % (0-0.5); % Monocytes 9.1 % (1.7-9.3); % Neutrophils 64.6 % (42.2-75.2); Absolute Basophils 0.1 10^3/uL (0-0.2); Absolute Eosinophils 0.4 10^3/uL (0-0.7); Absolute Immature Granulocytes 0.5 10^3/uL (0-0.05); Absolute Lymphocytes 1.8 10^3/uL (1.2-3.4); Absolute Neutrophils 6.9 10^3/uL (1.4-6.5); Hematocrit 32.7 % (39.0-52.0); Hemoglobin 10.8 g/dL (13.0-18.0); Mean Corpuscular Hgb 29.2 pg (27.0-31.0); Mean Corpuscular Volume 88.4 fL (80.0-94.0); Mean Platelet Volume 10.1 fL (7.4-10.4); Nucleated Red Blood Cells % 0 % (-); Platelet Count 490 10^3/uL (130-400); Red Cell Dist. Width 12.8 % (11.5-14.5); White Blood Cell Count 10.7 10^3/uL (4.8-10.8)
[2024-04-10 07:38] LABS: Blood Urea Nitrogen 12 mg/dl (9-20); Calcium 8.8 mg/dl (8.4-10.2); Carbon Dioxide 26 mmol/L (22-30); Chloride 97 mmol/L (98-107); Estimated Creatinine Clearance 105 ml/min; Glucose 90 mg/dl (70-99); Potassium 4.5 mmol/L (3.5-5.1); Sodium 134 mmol/L (135-145); eGFR > 60.00
[2024-04-10 07:54] VITALS: BP 127/72
[2024-04-10] MEDS: NICODERM TRANSDERMAL 14 MG TRANSDERM (08:43)
[2024-04-10] MEDS: COZAAR 50 MG PO (08:43)
--- NOTE | 2024-04-10 09:11 | W.PN.CRS1 ---
Today's Communication / Plan
-
continue abx
continue diet
possible dc today vs tomorrow
Assessment/Plan
-
Assessment: 39-year-old male with a history of sarcoidosis and tobacco abuse presents to the ER for 3 days of abdominal pain and fevers. Started on IV antibiotics and white count is 12.[address] abdomen pelvis shows acute diverticulitis of the
sigmoid.
6/5 - L abdominal drain placement by IR
WBC 10.7. vitals normal.
POD# 9 sigmoid resection and end colostomy (Helen's procedure)
1. Continue low residue diet.
2. Wound RN for stoma teaching.
3. OOB as tolerated.
4. Lovenox for DVT prophylaxis, TEDS and SCDS in place.
5. OR pathology pending.
6. Continue IV antibiotics/antifungal - micafungin and Zosyn. Appreciate ID. Cultures from IR pending.
7. Pain control: Roxicodone PRN, Tylenol/Toradol standing.
8. Appreciate hospitalist.
9. Daily dressing changes.
10. Anticipate d/c today or tomorrow depending on ID. VN ordered for drain care at home.
Subjective Data
Procedure
04/01/2024- Exploratory laparotomy, sigmoid resection and end colostomy (Helen's procedure)
Subjective Data
Date of Service: April 10, 2024
Patient states he feels well today. His abdominal pain is minimal. He has no nausea or vomiting. His stoma is producing.
Objective Data
-
Vital Signs
Temp Pulse Resp BP Pulse Ox
98.1 F 73 16 127/72 99
04/10/24 07:54 04/10/24 08:43 04/10/24 07:54 04/10/24 08:43 04/10/24 07:54
Intake & Output
04/09/24 04/10/24 04/11/24
06:59 06:59 06:59
Intake Total 580 / 580 1620 / 1620
Output Total 655 / 655 160 / 160 95 / 95
Balance -75 / -75 1460 / 1460 -95 / -95
Intake:
Oral fluids 480 / 480 1120 / 1120
IV fluids (Total) 180 / 180
IV piggybacks 100 / 100 315 / 315
Amount instilled into Drain (
Total)
Left Lower Abdomen Placed in IR
Output:
Liquid stool amount 325 / 325 150 / 150 95 / 95
Colostomy 325 / 325 150 / 150 95 / 95
Drain Output (Total)
Left Lower Abdomen Placed in IR
Urine, Voided 300 / 300
Other:
Number of approximated MODERATE 1 5
amounts of urine
Number of approximated LARGE 1
amounts of urine
Lab Results
04/10/24 04:42
04/10/24 04:42
Physical Exam
-
General: No Acute Distress and AOx3
Abdomen: Soft, Distended and Tender (very mild around incision)
Wound: Dressing Changed (erythema resolving in lower aspect)
--- NOTE | 2024-04-10 09:30 | W.PN.ID1 ---
Date of Service
Date of Service: April 10, 2024
Today's Communication
Continue with Zosyn (d#12) and micafungin (d#8). See below...
Assessment / Plan
Sigmoid diverticulitis with perforation and abscess
Leukocytosis
- improved
Fungal peritonitis
Fever
GERD
HTN
Sarcoidosis
Recommendations:
Abd fluid culture (obtained 04/08/24) without growth.
Continue with Zosyn (d#12) and micafungin (d#8)
At discharge, would transition to Augmentin 875 mg p.o. twice daily / Diflucan 200 mg, to continue an additional 7 days.
Monitor white count temperature curve.
����������������������������������������������������������
Chief Complaint
-: Other (Fungal peritonitis)
Subjective / Review of Systems
Review of Systems: No Fever, No Chills and Abdominal Pain (mild)
Vital Signs / Physical Exam
Vital Signs
Vital Signs
Temp Pulse Resp BP Pulse Ox
98.1 F 73 16 127/72 99
04/10/24 07:54 04/10/24 08:43 04/10/24 07:54 04/10/24 08:43 04/10/24 07:54
Physical Exam
Constitutional: No Acute Distress, Comfortable and Non-toxic
Eyes: Sclera Anicteric
Pulmonary: Non Labored
Gastrointestinal: Soft, Non Distended, Normal Bowel Sounds, No Rebound, No Guarding and Other (Ostomy in place. Left LANDON with serous fluid.)
Extremities: Negative Cyanosis or Erythema
Skin: Warm and Dry; Negative Rash or Jaundice
Wound: Other (Lower abdominal wound dressed. Upper abdominal wound with edy in place.)
Neurological: Awake, Alert and Oriented
Psychological: Calm
Objective Data
Lab Data
Lab Results
04/10/24 04:42
04/10/24 04:42
PT 15.7 Sec (11.4-14.6) H 03/30/24 06:07
INR 1.27 03/30/24 06:07
APTT 36.2 Sec (23.4-35.0) H 03/30/24 06:07
Estimated Creat Clear 105 ml/min 04/10/24 04:42
Total Bilirubin 1.5 mg/dl (0.2-1.3) H 03/29/24 19:41
GGT 167 U/L (15-73) H 03/30/24 06:07
AST 32 U/L (17-59) 03/29/24 19:41
ALT 40 U/L (0-50) 03/29/24 19:41
Alkaline Phosphatase 88 U/L (38-126) 03/29/24 19:41
Most recent labs reviewed.
Micro Results:
04/08/24 16:30 Wound Culture - Preliminary
Abdomen No growth
Gram Stain - Preliminary
04/06/24 09:57 MRSA Screen - Final
Nose No Methicillin Resistant Staphylococcus aureus isolated.
04/01/24 09:00 Wound Culture - Final
Abdomen Yeast
Gram Stain - Final
04/01/24 09:00 Anaerobic Culture - Final
Abdomen
03/30/24 06:07 Blood Culture - Final
Blood/Venous No Growth - Final Report
03/30/24 06:43 Blood Culture - Final
Blood/Venous No Growth - Final Report
03/30/24 06:11 MRSA Screen - Final
Nose No Methicillin Resistant Staphylococcus aureus isolated.
Imaging:
CT abdomen/pelvis with contrast: Status post sigmoid colectomy with colostomy and Diggs's pouch. Fluid collections within the left lateral lower abdomen and within the pelvis more inferiorly, with measurements given above. There may be
a thin connection between these fluid collections in the left upper pelvis. Superimposed infection of these collections cannot be excluded by imaging.
04/01/2024 CT abdomen/pelvis with contrast: Progressed findings suggesting bowel perforation due to acute diverticulitis. There is moderate pericolic stranding around the proximal sigmoid colon, with scattered diverticula consistent with active
diverticulitis. There is increased extraluminal air adjacent to the diseased sigmoid colon measuring 1.7 x 1.0 cm and has suggestion of thin developing wall and a small air-fluid level.
Care Review
Plan reviewed with: Physician (CRS)
[2024-04-10 11:35] VITALS: BP 129/61
--- NOTE | 2024-04-10 12:47 | W.DS.TRANS ---
DC Summary - Pharm Spec
-
Discharge Instructions:
Discharge Diagnosis/Procedures Acute Perforated sigmoid diverticulitis s/p
Exploratory laparotomy, sigmoid resection and
end colostomy (Helen's procedure) by Dr Martínez
04/01, abscess s/p drainage 04/08
Diet Low Residue
Activity No strenuous activity
Additional Activity No lifting over 10lbs (gallon of milk)
Driving Restrictions No driving for 1 week
Bathing Restrictions OK to Shower
Other Services VN
Wound Care Edy will be removed at your office visit
with Dr. Martínez. Cover edy with gauze and
tape to protect clothing. Okay to remove gauze
for showering. Change daily. Incision does not
need to be covered when it is no longer weeping.
Instructions: Low Fiber Diet
Stand-Alone Forms:
Changes to Home Medications: No
Discharge Medications:
DC Medications w/original date entered in [facility]
calcium carbonate (Tums) 500 mg PO DAILYPRN PRN heartburn 06/25/22
multivitamin 1 tab PO DAILY Supplement 06/25/22
acetaminophen 325 mg tablet 650 mg (2 x 325 mg) PO Q4HPRN PRN mild pain/COBURN/temp>100.5 #30 tabs 04/10/24
amoxicillin 875 mg-potassium clavulanate 125 mg tablet 1 tab PO Q12H #14 tabs 04/10/24
fluconazole 200 mg tablet (Diflucan) 200 mg PO DAILY #7 tabs 04/10/24
losartan 50 mg tablet 50 mg PO DAILY Blood Pressure #30 tabs 04/10/24
oxycodone 5 mg tablet 5 mg PO Q4HPRN PRN moderate pain #20 tabs 04/10/24
Home Medication Changes
Pending Results: No
Total time spent discharging patient (in min): 42
--- NOTE | 2024-04-10 12:50 | W.PN.HOSP.TC ---
Today's Communication/Plan
-
dc
Assessment / Plan
Assessment / Plan
Assessment:
Acute Perforated sigmoid diverticulitis s/p Exploratory laparotomy, sigmoid resection and end colostomy (Helen's procedure) by Dr Martínez 04/01
Evolving sepsis
- path per Dr. Martínez consistent with diverticulitis, no cancer
- dc on Augmentin/Diflucan x 1 week further
- diet: LRD and tolerating
- repeat CT 04/07: Fluid collections within the left lateral lower abdomen and within the pelvis more inferiorly, with measurements given above. There may be a thin connection between these fluid collections in the left upper pelvis. Superimposed
infection of these collections cannot be excluded by imaging.
- s/p IRAD drain placement 04/08, follow drain culture. OP F/u with CRS and IRAD
Nocturnal desaturations/hypoxia
- likely LEONOR - needs OP Sleep study
- setup home night O2 with CM completed
- Patient is in need of oxygen at 2 liters/minute via nasal cannula continuously at night due to pulse oximetry of 61% on room air at rest during sleep. Oxygen will help to improve hypoxemia. Patient is mobile within the home. DuoNeb therapy has
been tried and is ineffective in treating hypoxemia related symptoms. Oxygen is needed to improve symptoms.
Hyponatremia
UBALDO
- resolved
Essential HTN
- continue Losartan
- prn Hydralazine
Daily ETOH use: 3-4 glasses [place] daily
- He does not have signs of withdrawal. Passed time for showing withdrawal, ok to be off off MSAS protocol.
Anxiety
- continue prn Ativan
History of tobacco use, nicotine patch
Obesity BMI 35
DVT ppx: Lovenox + SCDs
Code: Full
More than 30 minutes spent in discharge including
Final examination of the patient
Summarizing hospital stay
Instructions for continuing care to all relevant caregivers
Preparation of discharge records, prescriptions, and referral forms
Total time spent (in minutes): 42
Anticipated Discharge: Today
Subjective/Interval History
-
Date of Service: April 10, 2024
feels well
Objective Data
-
Labs:
Laboratory Results
04/10/24
04:42
WBC 10.7
Hgb 10.8 L
Hct 32.7 L
Plt Count 490 H
Sodium 134 L
Potassium 4.5
Chloride 97 L
Carbon Dioxide 26
BUN 12
Creatinine 1.2
Glucose 90
Calcium 8.8
Vital Signs:
Vital Signs
Temp Pulse Resp BP Pulse Ox
97.8 F 67 18 129/61 100
04/10/24 11:35 04/10/24 11:35 04/10/24 11:35 04/10/24 11:35 04/10/24 11:35
I&O
04/09/24 04/10/24 04/11/24
06:59 06:59 06:59
Intake Total 580 / 580 1620 / 1620 5 / 5
Output Total 655 / 655 160 / 160 95 / 95
Balance -75 / -75 1460 / 1460 -90 / -90
Physical Exam
-
General: No Apparent Distress
HEENT: Normocephalic and Atraumatic
Respiratory: Negative Wheezes
Cardiac: Regular Rhythm and S1/S2
GI: Soft
Neuro: AO x 3
Psych: Calm
Data Reviewed
-
Total Time Spent with Patient (in minutes): 41
Labs: Labs Reviewed by me
--- NOTE | 2024-04-10 14:08 | CM ---
met with patient and at bedside.i explained that [employer] is your oxygen supplier.i had attending write note on dc instuctions that patient should call [phone] when he arrives home so they can deliver his oyxgen
concentrator.patient understands and will call when he gets home.vn following patient. to transport patient home.
== END 2024-04-10 14:53 | disposition home health service (06) | DRG 853 ==
LOC: 2 NORTH 22:33
PROVIDERS: Internal Medicine; Nurse Practitioner Family; Nurse Practitioner Gerontology; Physician Assistant; Radiology Vascular & Interventional Radiology; Registered Nurse; Surgery; ADMITTING PHYSICIAN Internal Medicine; ATTENDING PHYSICIAN Internal Medicine; CONSULT PHYSICIAN Internal Medicine Infectious Disease; EMERGENCY PHYSICIAN Emergency Medicine; FAMILY PHYSICIAN Physician Assistant; OTHER PHYSICIAN Surgery
PROC: 0D9670Z Drainage of Stomach with Drainage Device, Via Natural or Artificial Opening (ICD-10-PCS; 2024-04-01)
PROC: 0DTN0ZZ Resection of Sigmoid Colon, Open Approach (ICD-10-PCS; 2024-04-01)
PROC: 0D1M0Z4 Bypass Descending Colon to Cutaneous, Open Approach (ICD-10-PCS; 2024-04-01)
PROC: 0W9H30Z Drainage of Retroperitoneum with Drainage Device, Percutaneous Approach (ICD-10-PCS; 2024-04-08)
DX: A41.9 Sepsis, unspecified organism (principal); K65.8 Other peritonitis; R65.21 Severe sepsis with septic shock; K57.20 Diverticulitis of large intestine with perforation and abscess without bleeding; E87.1 Hypo-osmolality and hyponatremia; N17.9 Acute kidney failure, unspecified; B49 Unspecified mycosis; I10 Essential (primary) hypertension; K21.9 Gastro-esophageal reflux disease without esophagitis; R09.02 Hypoxemia; D86.9 Sarcoidosis, unspecified; F17.210 Nicotine dependence, cigarettes, uncomplicated; F41.9 Anxiety disorder, unspecified; K59.00 Constipation, unspecified; F10.90 Alcohol use, unspecified, uncomplicated; E78.5 Hyperlipidemia, unspecified; E66.9 Obesity, unspecified; Z68.35 Body mass index [BMI] 35.0-35.9, adult
CPT/HCPCS: 88307; 36600; 49406; 71045; 74177; 80048; 80053; 80202; 80306; 80307; 81003; 81015; 82010; 82077; 82565; 82805; 82977; 83690; 83735; 83930; 83935; 84100; 84145; 84300; 84520; 85025; 85027; 85610; 85730; 87040; 87070; 87075; 87205; 93005; 94762; 96361; 96374; 96375; 97116; 97163; 99152; 99285; 99406; Q9967

== ENCOUNTER → 2024-04-15 09:20 | Outpatient (REF) | payer BC, SELFPAY ==
[2024-04-15 09:45] VITALS: BP 130/80; BP_SYST 101
== END ==
LOC: RADI 09:20
PROVIDERS: ATTENDING PHYSICIAN Physician Assistant; FAMILY PHYSICIAN Physician Assistant
DX: Z46.82 Encounter for fitting and adjustment of non-vascular catheter (principal); Z93.3 Colostomy status; K65.1 Peritoneal abscess
CPT/HCPCS: 49424; 76080

== ENCOUNTER → 2024-07-21 06:17 | Day surgery (SDC) | payer BC, SELFPAY | LOC: GI 06:17 | PROVIDERS: ATTENDING PHYSICIAN Surgery | DX: Z01.818 Encounter for other preprocedural examination (principal); Z93.3 Colostomy status | CPT/HCPCS: 45378 ==

== ENCOUNTER 2024-08-07 10:19 | Inpatient (IN) | payer BC, SELFPAY ==
[2024-07-30 08:43] VITALS: BMI 31.3
[2024-07-30 10:29] LABS: Hematocrit 47.5 % (39.0-52.0); Hemoglobin 16.1 g/dL (13.0-18.0); Mean Corp Hgb Conc. 33.9 g/dL (33.0-37.0); Mean Corpuscular Hgb 28.8 pg (27.0-31.0); Mean Platelet Volume 10.2 fL (7.4-10.4); Platelet Count 266 10^3/uL (130-400); Red Blood Cell Count 5.59 10^6/uL (4.70-6.10); Red Cell Dist. Width 14.9 % (11.5-14.5); White Blood Cell Count 11.5 10^3/uL (4.8-10.8)
[2024-07-30 10:45] LABS: Glycohemoglobin (HgbA1c) 5.3 % (4.0-5.6)
[2024-07-30 11:01] LABS: ALT (SGPT) 41 U/L (0-50); AST (SGOT) 40 U/L (17-59); Albumin 4.9 g/dl (3.5-5.0); Alkaline Phosphatase 110 U/L (38-126); Blood Urea Nitrogen 17 mg/dl (9-20); Calcium 10.3 mg/dl (8.4-10.2); Carbon Dioxide 27 mmol/L (22-30); Chloride 100 mmol/L (98-107); Estimated Creatinine Clearance 105 ml/min; Glucose 94 mg/dl (70-99); Sodium 142 mmol/L (135-145); Total Bilirubin 0.9 mg/dl (0.2-1.3); Total Protein 8.8 g/dl (6.3-8.2); eGFR > 60.00
[2024-08-07] VITALS (13 sets, daily range): BP systolic 130–175; BP diastolic 93–110; BMI 31.3
[2024-08-07] MEDS: HEPARIN 5000 UNITS SC (10:34)
[2024-08-07] MEDS: TYLENOL 1000 MG PO (10:34)
[2024-08-07] MEDS: NORMOSOL-R/PLASMALYTE-A 1000 IV ×2 (10:34→19:07)
[2024-08-07] MEDS: ENTEREG 12 MG PO (10:34)
--- NOTE | 2024-08-07 18:03 | W.IMMPOSTOP ---
Surgical Immed Post Op Note
-
Primary Surgeon: Jesus Alberto Martínez MD
Assistants: RACH Lopez & SALTY Talley
Pre-op Diagnosis: Colostomy
Post-op Diagnosis: same
Procedure Performed: Robotic colostomy closure with takedown of splenic flexure & incidental appendectomy
Anesthesia Type: GET
Specimen / Cultures: Colostomy, appendix, and segment of rectum
Estimated Blood Loss: 40cc
Complications: none
Operative Findings: appendix secondarily involved in the inflammation
28 mm EEA
Normal leak test
Patient's family updated in waiting room.
[2024-08-07] MEDS: DILAUDID 0.5 MG IV ×3 (18:30→22:59)
--- NOTE | 2024-08-07 19:43 | SUR.PHASEI ---
Dr Quintero TT to get continuous pulse ox as LEONOR. Report to Margie at bedside and by phone, dressings checked. Marilin Garcia RN BSN.
[2024-08-07] MEDS: TYLENOL PO (19:48)
[2024-08-07] MEDS: TYLENOL 650 MG PO (20:27)
--- NOTE | 2024-08-07 22:35 | PTCARENOTE ---
At 1930, Received patient from PACU via bed, family at bedside. Medsurg orders. Afebrile, HR 70-80s, BP 140-160s/90-100s, pox 99% 4LNC, no c/o pain. House WOUND SPECIALIST made aware of BP. No new orders at this time. Patient has a PMH of LEONOR but does not utilize
device. States he uses 3LNC HS. dressing to surgical site w/ scant drainage. [place] intact w/ edy that are approximated. Plan of care discussed. Patient oriented to room. Call poon within reach.
[2024-08-08] MEDS: TYLENOL PO ×2 (01:00→05:00)
[2024-08-08] MEDS: TYLENOL 650 MG PO ×5 (01:54→19:44)
[2024-08-08 03:00] VITALS: BP 150/91
[2024-08-08] MEDS: DILAUDID 0.5 MG IV ×5 (03:00→22:02)
[2024-08-08] MEDS: NORMOSOL-R/PLASMALYTE-A 1000 IV (05:38)
[2024-08-08 05:59] LABS: % Basophils 0.2 % (0-2); % Immature Granulocytes 0.5 % (0-0.5); % Monocytes 8.3 % (1.7-9.3); Absolute Immature Granulocytes 0.1 10^3/uL (0-0.05); Absolute Lymphocytes 1.4 10^3/uL (1.2-3.4); Absolute Monocytes 1.4 10^3/uL (0.1-0.6); Hematocrit 43.6 % (39.0-52.0); Hemoglobin 14.7 g/dL (13.0-18.0); Mean Corp Hgb Conc. 33.7 g/dL (33.0-37.0); Mean Corpuscular Hgb 28.5 pg (27.0-31.0); Mean Corpuscular Volume 84.7 fL (80.0-94.0); Mean Platelet Volume 9.6 fL (7.4-10.4); Nucleated Red Blood Cells % 0 % (-); Platelet Count 280 10^3/uL (130-400); Red Blood Cell Count 5.15 10^6/uL (4.70-6.10); Red Cell Dist. Width 13.9 % (11.5-14.5); White Blood Cell Count 16.9 10^3/uL (4.8-10.8)
[2024-08-08 06:24] LABS: Blood Urea Nitrogen 14 mg/dl (9-20); Calcium 9.2 mg/dl (8.4-10.2); Carbon Dioxide 27 mmol/L (22-30); Chloride 99 mmol/L (98-107); Estimated Creatinine Clearance 113 ml/min; Glucose 111 mg/dl (70-99); Potassium 5.7 mmol/L (3.5-5.1); Sodium 139 mmol/L (135-145); eGFR > 60.00
[2024-08-08] MEDS: DILAUDID 0.25 MG IV ×3 (06:31→15:30)
[2024-08-08 07:08] VITALS: BP 147/95
[2024-08-08] MEDS: ENTEREG 12 MG PO ×2 (07:50→19:45)
[2024-08-08] MEDS: THERAGRAN 1 TABLET PO (07:50)
[2024-08-08] MEDS: COZAAR 50 MG PO (07:54)
[2024-08-08] MEDS: ATIVAN 1 MG PO (08:14)
--- NOTE | 2024-08-08 10:28 | CM ---
CM reviewed medical records. CM met with patient in room. Patient confirmed demographics. Patient lives independently. Patient has a history of VN from [facility]. He reports anxiety regarding wound care. CM sent referral via [facility] to [facility]. CM
updated [facility] account liaison hospice with new referral. Patient denies history of SNF. Patient has nocturnal oxygen at 3l [place] from [facility]. Patient is active with his PCP. Patient uses [facility] for medication services.
PLAN: Home with [facility].
--- NOTE | 2024-08-08 10:55 | W.PN.CRS1 ---
Today's Communication / Plan
-
Diet advancement
Heparin subq
Assessment/Plan
-
POD#1 Robotic colostomy closure
-WBC 16.9 as expected postop. Vitals normal. Will trend.
-Out of bed as tolerated
-Pain control: Tylenol standing, Dilaudid as needed. Holding Toradol due to elevated creatinine at baseline.
-Ativan x 1 given anxiety. Will add as needed dose.
-Heparin subcu for DVT prophylaxis. Teds and SCDs in place.
-Start on clear liquids. Advance to full if tolerates.
-OR pathology pending
-Continue Lui until a.m.
-Daily wound care
Subjective Data
Procedure
08/07 - Robotic colostomy closure with takedown of splenic
flexure and incidental appendectomy.
Subjective Data
Date of Service: August 08, 2024
Patient states he has anxiety. He otherwise has some moderate pain. He denies nausea or vomiting. He staples snot have gas or flatus.
Objective Data
-
Vital Signs
Temp Pulse Resp BP Pulse Ox
97.8 F 90 16 147/95 99
08/08/24 07:08 08/08/24 07:54 08/08/24 07:08 08/08/24 07:54 08/08/24 07:08
Intake & Output
08/07/24 08/08/24 08/09/24
06:59 06:59 06:59
Intake Total 1224 / 1224
Output Total 1650 / 1650
Balance -426 / -426
Intake:
Oral fluids 209 / 209
IV fluids (Total) 1015 / 1015
Normosol-R/Plasmalyte-A 1,000 40 / 40
ml @ 75 mls/hr IV .[id number] DEVI
Rx#:[id number]
norm 75 / 75
Output:
Urine, Lui 1650 / 1650
Lab Results
08/08/24 05:17
08/08/24 05:17
Physical Exam
-
General: No Acute Distress and AOx3
Abdomen: Soft, Non Distended and Tender (around incisions)
Skin: Warm and Dry
Incision: Clear, Dry, Intact
[2024-08-08 11:15] VITALS: BP 143/94
[2024-08-08 15:26] VITALS: BP 132/73
[2024-08-08] MEDS: HEPARIN 5000 UNITS SC (15:30)
[2024-08-08] MEDS: NORMOSOL-R/PLASMALYTE-A IV (18:20)
[2024-08-08 19:44] VITALS: BP 116/85
[2024-08-08] MEDS: ATIVAN 0.5 MG PO (22:18)
[2024-08-08 23:41] VITALS: BP 167/83
[2024-08-09] MEDS: HEPARIN 5000 UNITS SC ×4 (00:27→23:36)
[2024-08-09] MEDS: TYLENOL 650 MG PO ×5 (00:27→23:36)
[2024-08-09] MEDS: DILAUDID 0.5 MG IV ×3 (02:16→10:24)
[2024-08-09] MEDS: TYLENOL PO ×2 (05:22→11:47)
[2024-08-09 05:26] LABS: % Basophils 0.9 % (0-2); % Eosinophils 1.2 % (0-6); % Immature Granulocytes 0.5 % (0-0.5); % Lymphocytes 18.3 % (20.5-51.1); % Monocytes 10.1 % (1.7-9.3); Absolute Basophils 0.1 10^3/uL (0-0.2); Absolute Eosinophils 0.2 10^3/uL (0-0.7); Absolute Immature Granulocytes 0.1 10^3/uL (0-0.05); Absolute Lymphocytes 2.4 10^3/uL (1.2-3.4); Absolute Monocytes 1.3 10^3/uL (0.1-0.6); Absolute Neutrophils 8.8 10^3/uL (1.4-6.5); Hematocrit 43.3 % (39.0-52.0); Hemoglobin 14.4 g/dL (13.0-18.0); Mean Corp Hgb Conc. 33.3 g/dL (33.0-37.0); Mean Corpuscular Hgb 29.7 pg (27.0-31.0); Mean Corpuscular Volume 89.3 fL (80.0-94.0); Mean Platelet Volume 9.8 fL (7.4-10.4); Nucleated Red Blood Cells % 0 % (-); Platelet Count 244 10^3/uL (130-400); Red Blood Cell Count 4.85 10^6/uL (4.70-6.10); Red Cell Dist. Width 13.8 % (11.5-14.5); White Blood Cell Count 12.8 10^3/uL (4.8-10.8)
[2024-08-09 05:55] LABS: Blood Urea Nitrogen 12 mg/dl (9-20); Calcium 9.2 mg/dl (8.4-10.2); Carbon Dioxide 28 mmol/L (22-30); Chloride 100 mmol/L (98-107); Estimated Creatinine Clearance > 125 ml/min; Glucose 93 mg/dl (70-99); Potassium 4.4 mmol/L (3.5-5.1); Sodium 143 mmol/L (135-145); eGFR > 60.00
[2024-08-09] MEDS: ATIVAN 0.5 MG PO ×2 (06:26→10:19)
[2024-08-09 07:35] VITALS: BP 148/94
[2024-08-09] MEDS: NORMOSOL-R/PLASMALYTE-A IV ×2 (07:53→21:15)
[2024-08-09] MEDS: ENTEREG 12 MG PO ×2 (07:58→20:55)
[2024-08-09] MEDS: THERAGRAN 1 TABLET PO (07:58)
[2024-08-09] MEDS: COZAAR 50 MG PO (08:04)
[2024-08-09] MEDS: DILAUDID IV (10:19)
[2024-08-09] MEDS: ROXICODONE 10 MG PO ×2 (11:02→23:01)
--- NOTE | 2024-08-09 11:15 | W.PN.CRS1 ---
Today's Communication / Plan
-
full liquids
oxycodone
Assessment/Plan
-
POD#2 Robotic colostomy closure
-WBC 12.8 from 12.6. Vitals normal.
-Out of bed as tolerated
-Pain control: Tylenol standing, Dilaudid as needed for breakthrough, added oxycodone PRN. Holding Toradol due to elevated creatinine at baseline.
-Ativan PRN.
-Heparin subcu for DVT prophylaxis. Teds and SCDs in place.
-Advance diet to fulls.
-OR pathology pending
-Daily wound care
-Dalia in place in incision, will remove prior to d/c
Subjective Data
Procedure
08/07 - Robotic colostomy closure with takedown of splenic
flexure and incidental appendectomy.
Subjective Data
Date of Service: August 09, 2024
Patient states he has no nausea or vomiting. His pain was bad all night. He is having bowel movements and flatus. He is hungry.
Objective Data
-
Vital Signs
Temp Pulse Resp BP Pulse Ox
98.8 F 67 16 148/82 98
08/09/24 07:35 08/09/24 08:04 08/09/24 07:35 08/09/24 08:04 08/09/24 07:35
Intake & Output
08/08/24 08/09/24 08/10/24
06:59 06:59 06:59
Intake Total 1224 / 1224 1425 / 1425
Output Total 1650 / 1650 800 / 800
Balance -426 / -426 625 / 625
Intake:
Oral fluids 209 / 209 900 / 900
IV fluids (Total) 1015 / 1015 525 / 525
Normosol-R/Plasmalyte-A 1,000 40 / 40
ml @ 75 mls/hr IV .[id number] DEVI
Rx#:[id number]
norm 75 / 75
Output:
Urine, Lui 1650 / 1650 800 / 800
Lab Results
08/09/24 04:48
08/09/24 04:48
Physical Exam
-
General: No Acute Distress and AOx3
Abdomen: Soft, Non Distended and Tender (mild throughout )
Skin: Warm and Dry
Incision: Clear, Dry, Intact
[2024-08-09 15:14] VITALS: BP 161/103
[2024-08-09] MEDS: ROXICODONE 5 MG PO (18:19)
[2024-08-09 23:10] VITALS: BP 139/87
[2024-08-10] MEDS: ATIVAN 0.5 MG PO ×3 (00:09→13:09)
[2024-08-10] MEDS: TYLENOL 650 MG PO ×3 (03:48→12:20)
[2024-08-10 06:00] VITALS: BMI 29.4
[2024-08-10 06:19] LABS: % Basophils 0.8 % (0-2); % Eosinophils 2.1 % (0-6); % Immature Granulocytes 0.8 % (0-0.5); % Lymphocytes 20.1 % (20.5-51.1); % Monocytes 9.9 % (1.7-9.3); % Neutrophils 66.3 % (42.2-75.2); Absolute Basophils 0.1 10^3/uL (0-0.2); Absolute Eosinophils 0.2 10^3/uL (0-0.7); Absolute Immature Granulocytes 0.1 10^3/uL (0-0.05); Absolute Lymphocytes 2.2 10^3/uL (1.2-3.4); Absolute Monocytes 1.1 10^3/uL (0.1-0.6); Absolute Neutrophils 7.1 10^3/uL (1.4-6.5); Hematocrit 41.9 % (39.0-52.0); Hemoglobin 14.3 g/dL (13.0-18.0); Mean Corp Hgb Conc. 34.1 g/dL (33.0-37.0); Mean Corpuscular Hgb 30.1 pg (27.0-31.0); Mean Corpuscular Volume 88.2 fL (80.0-94.0); Mean Platelet Volume 9.9 fL (7.4-10.4); Nucleated Red Blood Cells % 0 % (-); Platelet Count 232 10^3/uL (130-400); Red Blood Cell Count 4.75 10^6/uL (4.70-6.10); Red Cell Dist. Width 13.4 % (11.5-14.5); White Blood Cell Count 10.7 10^3/uL (4.8-10.8)
[2024-08-10 06:55] LABS: Blood Urea Nitrogen 13 mg/dl (9-20); Calcium 9.6 mg/dl (8.4-10.2); Carbon Dioxide 28 mmol/L (22-30); Chloride 97 mmol/L (98-107); Estimated Creatinine Clearance > 125 ml/min; Glucose 82 mg/dl (70-99); Potassium 4.9 mmol/L (3.5-5.1); Sodium 139 mmol/L (135-145); eGFR > 60.00
[2024-08-10 07:17] VITALS: BP 157/105
[2024-08-10] MEDS: ROXICODONE 10 MG PO ×2 (08:58→13:08)
[2024-08-10] MEDS: COZAAR 50 MG PO (09:06)
[2024-08-10] MEDS: THERAGRAN 1 TABLET PO (09:06)
[2024-08-10] MEDS: ENTEREG 12 MG PO (09:07)
[2024-08-10] MEDS: HEPARIN 5000 UNITS SC ×2 (09:08→15:29)
--- NOTE | 2024-08-10 10:10 | PN.CDI ---
CDI
- -
CDI:
Physician Documentation Request
Admit Date: 08/07/24 10:19
Dear Doctor Mauricio,
Please review the following and provide your response in the progress notes.
Clinical Indicators:
- Patient admit for takedown of colostomy
- 08/07 Operative Report 'the peritoneum was entered. He had a parastomal hernia'
- 'distal aspect of it was amputated back to healthy-appearing bowel'
Please further specify the parastomal hernia:
Parastomal hernia with gangrene
Parastomal hernia without gangrene
Other
Use of terms such as suspected, likely, concern for, or probable (associated with a specific diagnosis that is being evaluated, monitored, or treated as if it exists) are acceptable and can be coded in the inpatient setting, when documented at the
time of discharge.
Thank you,
Eloina Santana RN
CDI Specialist
Please use your independent medical judgment in providing your response.
--- NOTE | 2024-08-10 10:50 | W.PN.CRS1 ---
Today's Communication / Plan
-
Low residue diet
Possible discharge later today
Assessment/Plan
-
POD#3 Robotic colostomy closure
-WBC 10.7 from 12.5. Vitals normal.
-Out of bed as tolerated
-Pain control: Tylenol standing, Dilaudid as needed for breakthrough, added oxycodone PRN. Holding Toradol due to elevated creatinine at baseline.
-Ativan PRN.
-Heparin subcu for DVT prophylaxis. Teds and SCDs in place.
-Advance diet to low residue
-OR pathology pending
-Daily wound care
-Linden removed
-Possible discharge later today if tolerates a low residue diet. I will check back in with him later this afternoon.
Subjective Data
Procedure
08/07 - Robotic colostomy closure with takedown of splenic
flexure and incidental appendectomy.
Subjective Data
Date of Service: August 10, 2024
Patient states he is still having some loose stools. His pain is controlled. The patient does admit to being quite anxious as this has been a tough journey for him. He does not have much of an appetite.
Objective Data
-
Vital Signs
Temp Pulse Resp BP Pulse Ox
98.6 F 96 17 157/105 99
08/09/24 23:10 08/10/24 09:06 08/09/24 23:10 08/10/24 09:06 08/09/24 23:10
Intake & Output
08/09/24 08/10/24 08/11/24
06:59 06:59 06:59
Intake Total 1425 / 1425 1080 / 1080
Output Total 800 / 800 300 / 300
Balance 625 / 625 780 / 780
Intake:
Oral fluids 900 / 900 1080 / 1080
IV fluids (Total) 525 / 525
Output:
Urine, Lui 800 / 800
Urine, Voided 300 / 300
Other:
Number of approximated MODERATE 2
amounts of urine
Lab Results
08/10/24 04:48
08/10/24 04:48
Physical Exam
-
General: No Acute Distress and AOx3
Abdomen: Soft, Non Distended and Tender (Mild over incision site)
Skin: Warm and Dry
Wound: Dressing Changed (kaya removed)
Incision: Clear, Dry, Intact
--- NOTE | 2024-08-10 10:52 | VNURNOTE ---
Liaison met with patient at bedside. He appeared comfortable and calm. We spoke about his surgery. He reported surgeon removed drain today. DC instructions reviewed. Gauze over old colostomy site, change daily. Patient feels he can handle that
independently. Patient reported being independent with home 02. He reported his mom is available to assist and spouse. No skilled VN needs identified. Patient agreeable to no VN at this time. PRASANNA Phillips aware.
--- NOTE | 2024-08-10 12:37 | CM ---
CM reviewed chart, anticipate d/c pending toleration of diet.
Discussion w/ Carmen from [facility], pt does not qualify for VN as pt is not homebound. Carmen had beside discussion to make aware of agreement and plan.
D/C disposition: Home no needs. will transport home
--- NOTE | 2024-08-10 13:03 | W.DS.TRANS ---
DC Summary - [employer]
-
Discharge Instructions:
Discharge Diagnosis/Procedures robotic colostomy closure
Diet Low Residue
Activity No strenuous activity
Additional Activity No lifting over 10 pounds (gallon of milk)
Driving Restrictions No driving for 1 week
Bathing Restrictions OK to Shower
Wound Care Cover old colostomy site with gauze and tape
daily. Okay to leave open to air to shower.
Instructions: Low Fiber Diet
Stand-Alone Forms:
Changes to Home Medications: Yes
Discharge Medications:
DC Medications w/original date entered in [employer]
calcium carbonate (Tums) 500 mg PO DAILYPRN PRN heartburn 06/25/22
multivitamin 1 tab PO DAILY Supplement 06/25/22
acetaminophen 325 mg tablet 650 mg (2 x 325 mg) PO Q4HPRN PRN mild pain/COBURN/temp>100.5 #30 tabs 04/10/24
losartan 50 mg tablet 50 mg PO DAILY Blood Pressure #30 tabs 04/10/24
oxycodone 5 mg tablet 5 mg PO Q6H PRN Pain #20 tabs 08/10/24
Home Medication Changes
oxycodone 5 mg tablet 5 mg PO Q6H PRN Pain #20 tabs 08/10/24
Pending Results: Yes
Additional Pending Results:
pathology
[2024-08-10 15:07] VITALS: BP 147/80
== END 2024-08-10 16:55 | disposition home or self-care (01) | DRG 331 ==
LOC: 2 SOUTH 10:19
PROVIDERS: Physician Assistant; ADMITTING PHYSICIAN Surgery; FAMILY PHYSICIAN Physician Assistant
PROC: 0DTJ0ZZ Resection of Appendix, Open Approach (ICD-10-PCS; 2024-08-07)
PROC: 0DNU3ZZ Release Omentum, Percutaneous Approach (ICD-10-PCS; 2024-08-07)
PROC: 0WQFXZ2 Repair Abdominal Wall, Stoma, External Approach (ICD-10-PCS; 2024-08-07)
PROC: 0DBL0ZZ Excision of Transverse Colon, Open Approach (ICD-10-PCS; 2024-08-07)
PROC: 0DTJ4ZZ Resection of Appendix, Percutaneous Endoscopic Approach (ICD-10-PCS; 2024-08-07)
DX: Z43.3 Encounter for attention to colostomy (principal); K66.0 Peritoneal adhesions (postprocedural) (postinfection); K43.5 Parastomal hernia without obstruction or gangrene
CPT/HCPCS: 88304; 88307; 36415; 80048; 80053; 83036; 85025; 85027; 86850; 86900; 86901; 99406; C1776; J1335

== ENCOUNTER → 2024-09-17 14:00 | Outpatient (REF) | payer BC, SELFPAY | LOC: DHSLP 14:00 | PROVIDERS: ATTENDING PHYSICIAN Internal Medicine; FAMILY PHYSICIAN Physician Assistant | DX: G47.33 Obstructive sleep apnea (adult) (pediatric) (principal) | CPT/HCPCS: 95811 ==

== ENCOUNTER → 2025-01-14 12:00 | Outpatient (REF) | payer BC, SELFPAY | LOC: RAD 12:00 | PROVIDERS: ATTENDING PHYSICIAN Surgery; FAMILY PHYSICIAN Physician Assistant | DX: K43.2 Incisional hernia without obstruction or gangrene (principal) | CPT/HCPCS: 74177; Q9967 ==

== ENCOUNTER 2025-03-26 05:56 | Day surgery (SDC) | payer BC, SELFPAY ==
[2025-03-19 09:05] LABS: Hematocrit 48.1 % (39.0-52.0); Hemoglobin 16.1 g/dL (13.0-18.0); Mean Corp Hgb Conc. 33.5 g/dL (33.0-37.0); Mean Corpuscular Hgb 30.4 pg (27.0-31.0); Mean Corpuscular Volume 90.8 fL (80.0-94.0); Mean Platelet Volume 10.4 fL (7.4-10.4); Platelet Count 225 10^3/uL (130-400); White Blood Cell Count 9.3 10^3/uL (4.8-10.8)
[2025-03-19 09:29] LABS: Blood Urea Nitrogen 12 mg/dl (9-20); Calcium 9.3 mg/dl (8.4-10.2); Carbon Dioxide 27 mmol/L (22-30); Chloride 104 mmol/L (98-107); Glucose 104 mg/dl (70-99); Potassium 4.4 mmol/L (3.5-5.1); Sodium 139 mmol/L (135-145); eGFR > 60.00
[2025-03-26] VITALS (11 sets, daily range): BP systolic 140–160; BP diastolic 57–98; BMI 36.3
[2025-03-26] MEDS: NORMOSOL-R/PLASMALYTE-A 1000 IV ×3 (06:28→19:05)
[2025-03-26] MEDS: TYLENOL 1000 MG PO (06:28)
--- NOTE | 2025-03-26 09:25 | W.IMMPOSTOP ---
Surgical Immed Post Op Note
-
Primary Surgeon: Vesta
Assisting Surgeon: DOE Crowley
Pre-op Diagnosis: Recurrent ventral incisional hernia repair with mesh
Post-op Diagnosis: Recurrent ventral incisional hernia repair with mesh
Procedure Performed: Robotic recurrent ventral incisional hernia repair with mesh, lysis of adhesions, bl TAP blocks
Anesthesia Type: Genera;
Specimen / Cultures: None
Estimated Blood Loss: 7 cc
Complications: None
Operative Findings:
1. 4 cm fascia defect at ostomy site, 2 cm defect at umbilicus, 0.5 cm defect in epigastrium, diastasis of midline
2. Primary closure of all defects with #1 PDS Stratafix symmetric
3. IPOM Ventralight ST 15 x 20 cm mesh covering all defects and diastasis
4. Bl TAP blocks operatively
[2025-03-26] MEDS: TYLENOL 650 MG PO ×4 (11:42→23:12)
[2025-03-26] MEDS: DILAUDID 0.5 MG IV ×3 (11:42→23:12)
[2025-03-26] MEDS: TORADOL 10 MG IV ×2 (14:19→20:18)
[2025-03-26] MEDS: ROXICODONE 5 MG PO (20:18)
[2025-03-27] MEDS: ROXICODONE 5 MG PO ×4 (01:24→19:36)
[2025-03-27] MEDS: TORADOL 10 MG IV ×2 (02:33→15:06)
[2025-03-27] MEDS: DILAUDID 0.5 MG IV ×5 (02:34→20:42)
[2025-03-27 03:25] VITALS: BP 134/83
[2025-03-27] MEDS: TYLENOL PO (04:37)
[2025-03-27] MEDS: NORMOSOL-R/PLASMALYTE-A 1000 IV (05:26)
[2025-03-27 07:45] VITALS: BP 153/99
[2025-03-27] MEDS: TYLENOL 650 MG PO ×4 (08:07→19:36)
--- NOTE | 2025-03-27 10:29 | W.PN.GS2 ---
Addendum entered and electronically signed by Kristofer Maxwell MD 03/27/25 15:08:
I saw and examined the patient.
The ELECTRONIC LAB TECHNICIAN's note was reviewed and I agree with the note.
Comment:
Seen earlier with ELECTRONIC LAB TECHNICIAN.
Pain control better.
AFVSS.
Incisions looked good.
Potential for discharge.
Original Note:
Today's Communication / Plan
-
dispo planning
Assessment / Plan
-
40 yo male with recurrent ventral incisional hernia now POD #1 robotic ventral incisional hernia repair with mesh, villa, bl tap blocks
AFVSS
Pain overnight, now with improvement
Tolerating cld with +flatus
Progressing well from surgical standpoint
--OOB/Ambulate
--D/C IVF
--Advance to regular diet
--C/W home meds
--Multimodal analgesics
--SCDs while in bed for vte ppx
Tentative d/c later today if tolerating diet
Subjective Data
-
Date of Service: March 27, 2025
Patient seen and examined at bedside. Spouse present, questions addressed. Denies n/v. Tolerating clears and passing flatus. Pain overnight, but improved this am.
Objective Data
-
Intake and Output
03/26/25 03/27/25 03/28/25
06:59 06:59 06:59
Intake Total 2420 / 2420
Balance 2420 / 2420
Intake:
Oral fluids 1120 / 1120
IV fluids (Total) 1300 / 1300
Normosol 100 / 100
Other:
Number of approximated LARGE 3
amounts of urine
Vital Signs
Temp Pulse Resp BP Pulse Ox
97.9 F 62 18 153/99 95
03/27/25 07:45 03/27/25 07:45 03/27/25 07:45 03/27/25 07:45 03/27/25 07:45
Lab Results
03/19/25 08:23
03/19/25 08:23
Calcium 9.3 mg/dl (8.4-10.2) 03/19/25 08:23
Physical Exam
-
NAD
ABD soft, nd, nt
Incisions with intact glue, no erythema
[2025-03-27] MEDS: COZAAR 50 MG PO (11:26)
[2025-03-27 11:40] VITALS: BP 144/86
--- NOTE | 2025-03-27 14:35 | CM ---
Initial assessment completed with patient who lives with his in single story home plus basement with 2 steps to enter. SALVAGER patient was independent in ADL's and ambulation, drives, works, has a CPAP, no in-home services. No HC-POA. No
service. PCP is Dr. Nahed Zayas and Pharmacy is [facility] on [address] in [place]. Discharge POC: No Needs. Patient declined services.
[2025-03-27 15:19] VITALS: BP 133/80
[2025-03-27] MEDS: LOVENOX 40 MG SC (17:19)
[2025-03-27 23:04] VITALS: BP 122/77
[2025-03-28] MEDS: DILAUDID 0.5 MG IV (00:09)
[2025-03-28] MEDS: TYLENOL 650 MG PO ×3 (00:10→08:08)
[2025-03-28] MEDS: TORADOL 10 MG IV (01:41)
[2025-03-28] MEDS: ROXICODONE 5 MG PO (04:04)
[2025-03-28 07:20] VITALS: BP 179/111
[2025-03-28] MEDS: COZAAR 50 MG PO (08:08)
[2025-03-28] MEDS: MIRALAX 17 GRAMS PO (08:08)
[2025-03-28] MEDS: ROXICODONE 10 MG PO (08:09)
--- NOTE | 2025-03-28 09:56 | W.PN.GS2 ---
Today's Communication / Plan
-
dispo planning
Assessment / Plan
-
40 yo male with recurrent ventral incisional hernia now POD #2 robotic ventral incisional hernia repair with mesh, villa, bl tap blocks
AFVSS
Pain still present but improving
Tolerating regular with +flatus
Progressing well from surgical standpoint
--OOB/Ambulate
--Advance to regular diet
--C/W home meds
--Multimodal analgesics
--SCDs while in bed for vte ppx
D/C to home
Subjective Data
-
Date of Service: March 28, 2025
Patient seen and examined at bedside with Dr. Maxwell. Denies n/v. OOB and ambulating in room. Pain management has been an issue overall, but would prefer to go home and manage there. Tolerating diet, passing flatus.
Objective Data
-
Intake and Output
03/27/25 03/28/25 03/29/25
06:59 06:59 06:59
Intake Total 2420 / 2420 760 / 760
Balance 2420 / 2420 760 / 760
Intake:
Oral fluids 1120 / 1120 360 / 360
IV fluids (Total) 1300 / 1300 400 / 400
Normosol 100 / 100
Other:
Number of approximated LARGE 3 1
amounts of urine
Vital Signs
Temp Pulse Resp BP Pulse Ox
98.4 F 90 18 179/111 98
03/28/25 07:20 03/28/25 07:20 03/28/25 07:20 03/28/25 07:20 03/28/25 08:06
Lab Results
03/19/25 08:23
03/19/25 08:23
Calcium 9.3 mg/dl (8.4-10.2) 03/19/25 08:23
Physical Exam
-
NAD
ABD soft, nd, nt
Incisions with intact glue, no erythema
--- NOTE | 2025-03-28 10:00 | W.DS.TRANS ---
DC Summary - [employer]
-
Discharge Instructions:
Sleep Apnea Risk Intermediate
Discharge Diagnosis/Procedures Robotic ventral incisional hernia repair with
mesh
Diet Regular
Activity No strenuous activity
Additional Activity No heavy lifting (>20 lbs) or strenuous
activities for 4-6 weeks postoperatively
Driving Restrictions No driving if too sore or taking narcotics
Bathing Restrictions OK to Shower
Wound Care Keep incisions clean and dry. Glue will flake
off in 2 to 3 weeks. Stitches will dissolve.
Use ice to the abdomen to reduce bruising or
swelling. Use an abdominal binder daily for the
first 2 weeks postoperatively.
Instructions:
Stand-Alone Forms:
Changes to Home Medications: No
Discharge Medications:
DC Medications w/original date entered in [employer]
calcium carbonate (Tums) 500 mg PO DAILYPRN PRN heartburn 06/25/22
losartan 50 mg tablet 50 mg PO DAILY Blood Pressure #30 tabs 04/10/24
acetaminophen 325 mg tablet 650 mg (2 x 325 mg) PO Q4HPRN PRN mild pain #1 tab 03/28/25
ibuprofen 200 mg tablet 400 - 600 mg (2 - 3 x 200 mg) PO Q6HPRN PRN moderate pain #1 tab 03/28/25
oxycodone 5 mg tablet 5 mg PO Q4HPRN PRN breakthrough/severe pain #24 tabs 03/28/25
polyethylene glycol 3350 17 gram oral powder packet 17 grams PO DAILYPRN PRN constipation #1 packet 03/28/25
Home Medication Changes
Pending Results: No
--- NOTE | 2025-03-28 13:04 | CM ---
Patient has been medically cleared for discharge to home with no additional skilled services. Declined HH RN. Patient arranged for transport home.
== END 2025-03-28 10:02 | disposition home or self-care (01) ==
LOC: SDS 05:56
PROVIDERS: ATTENDING PHYSICIAN Surgery; FAMILY PHYSICIAN Physician Assistant
DX: K43.2 Incisional hernia without obstruction or gangrene (principal); K42.9 Umbilical hernia without obstruction or gangrene; E66.9 Obesity, unspecified; G47.33 Obstructive sleep apnea (adult) (pediatric); K66.0 Peritoneal adhesions (postprocedural) (postinfection)
CPT/HCPCS: 49615; 36415; 80048; 85027; 87070; 93005; C1781